=== PATIENT | female | born 1935 | race American Indian/Alaskan Native ===

== ENCOUNTER 2018-12-20 15:37 | Inpatient (IN) | payer MEDICARE ==
--- NOTE | 2018-12-20 16:15 | Emergency Department Report ---
Blank Doc - Documentation Documentation: pt just moved on sunday, cannot take care of herself at home, moved in with jeff krishnamurthy the daughter states that she has 3 bed sores on the buttocks right great toe infection per daughter daughter states she has been more confused PMHx RA, hip fx, shoulder fx, HTN
[2018-12-20 17:01] LABS: Basophils # (Auto) 0.1 K/mm3 (0.0-0.1); Basophils % (Auto) 0.9 % (0.0-1.8); Eosinophils # (Auto) 0.1 K/mm3 (0.0-0.4); Eosinophils % (Auto) 0.9 % (0.0-4.3); Hematocrit 31.8 % (30.3-42.9); Hemoglobin 10.7 gm/dl (10.1-14.3); Lymphocytes # (Auto) 1.9 K/mm3 (1.2-5.4); Lymphocytes % (Auto) 20.8 % (13.4-35.0); Mean Corpuscular HGB Conc 34 % (30-34); Mean Corpuscular Volume 97 fl (79-97); Monocytes # (Auto) 0.9 K/mm3 (0.0-0.8); Monocytes % (Auto) 9.8 % (0.0-7.3); Platelet Count 634 K/mm3 (140-440); Red Blood Count 3.28 M/mm3 (3.65-5.03); Red Cell Distribution Width 14.3 % (13.2-15.2)
[2018-12-20 17:09] LABS: INR 0.87 (0.87-1.13)
[2018-12-20 17:10] LABS: Partial Thromboplastin Time 25.5 Sec. (24.2-36.6)
[2018-12-20 17:21] LABS: Alanine Aminotransferase 9 units/L (7-56); BUN/Creatinine Ratio 25; Blood Urea Nitrogen 15 mg/dL (7-17); Calcium 8.2 mg/dL (8.4-10.2); Hemolysis Index 36
--- NOTE | 2018-12-20 17:35 | XRay Report ---
PROCEDURE: XR FOOT 3+V RT TECHNIQUE: Right foot radiographs, AP, lateral, and oblique views. HISTORY: right great toe infection COMPARISONS: None . FINDINGS: No bony erosion or periosteal reaction. Fracture (s) and/or Dislocation(s): None . Alignment: Normal . Joint space(s): Normal . Soft tissues: Normal . Bone mineralization: Diffuse osteopenia is noted. . Foreign bodies: None . Calcaneal spurring: None . IMPRESSION: No acute osseous abnormality of the right foot. No radiographic evidence of osteomyeliti s. . This document is electronically signed by Rebekah Ricardo., Dec 20 2018 05:33:18 PM ET
--- NOTE | 2018-12-20 17:45 | XRay Report ---
PROCEDURE: XR SHOULDER 2+V RT TECHNIQUE: 3 views of the right shoulder. HISTORY: right shoulder pain, shoulder injury two weeks ago COMPARISONS: None. FINDINGS: No fracture. No dislocation. Normal mineralization. No soft tissue swelling. Calcified apical pleural plaques are seen. Several nodular opacities are seen within the left mid to lower lung. Mild degenerative changes of the right glenohumeral and acromial clavicular joints are seen. IMPRESSION: 1. Mild osteoarthritis of the right shoulder. 2. Calcified bilateral pleural plaques with several nodular opacities projecting in the left lower lo be. Recommend further evaluation with chest x-ray. This document is electronically signed by Rebekah Ricardo., Dec 20 2018 05:43:36 PM ET
[2018-12-20 17:58] LABS: HDL Cholesterol 70 mg/dL (40-59); LDL Cholesterol,Direct 70 mg/dL (50-130)
--- NOTE | 2018-12-20 18:33 | Emergency Department Report ---
ED General Adult HPI - General Chief complaint: Skin/Abscess/Foreign Body Stated complaint: FRACTURED LT SHOULDER/BED SORES Time Seen by Provider: 12/20/18 16:09 Source: patient Mode of arrival: Ambulatory Limitations: Altered Mental Status - History of Present Illness Initial comments: Patient is a 3-year-old female that presents emergency room for violation of left shoulder pain and bedsores. Patient denies chest pain shortness of breath. Patient states her shoulder pain is a 5 out of 10. Patient states it's worse with movement better with rest. Patient states she had an x-ray normal examination with fracture. Patient states she fell on her right shoulder. -: Gradual Location: upper extremity Severity scale (0 -10): 5 Quality: aching Consistency: constant Improves with: rest Worsens with: movement Associated Symptoms: denies: confusion, chest pain, cough, diaphoresis, fever/chills, headaches, loss of appetite, malaise, nausea/vomiting, rash, seizure, shortness of breath, syncope, weakness - Related Data Home Medications Medication Instructions Recorded Confirmed Last Taken Losartan/Hydrochlorothiazide 12/20/18 Unknown Prednisone [predniSONE (Ravinder) ER 5 mg PO QDAY MDD Rheumatoid 12/20/18 12/20/18 12/19/18 21:00 TAB] arthritis Allergies Allergy/AdvReac Type Severity Reaction Status Date / Time No Known Allergies Allergy Verified 12/20/18 15:39 ED Review of Systems ROS: Stated complaint: FRACTURED LT SHOULDER/BED SORES Other details as noted in HPI Constitutional: denies: chills, fever Eyes: denies: eye pain, eye discharge, vision change ENT: denies: ear pain, throat pain Respiratory: denies: cough, shortness of breath, wheezing Cardiovascular: denies: chest pain, palpitations Endocrine: no symptoms reported Gastrointestinal: denies: abdominal pain, nausea, diarrhea Genitourinary: denies: urgency, dysuria, discharge Musculoskeletal: denies: back pain, joint swelling, arthralgia Skin: lesions. denies: rash Neurological: denies: headache, weakness, paresthesias Psychiatric: denies: anxiety, depression Hematological/Lymphatic: denies: easy bleeding, easy bruising ED Past Medical Hx - Past Medical History Previous Medical History?: Yes Hx Hypertension: Yes Hx Arthritis: Yes Additional medical history: Decubitis wounds x 3, ulcers - Surgical History Past Surgical History?: No - Family History Family history: no significant - Social History Smoking Status: Current Every Day Smoker Substance Use Type: Alcohol - Medications Home Medications: Home Medications Medication Instructions Recorded Confirmed Last Taken Type Losartan/Hydrochlorothiazide 12/20/18 Unknown History Prednisone [predniSONE (Ravinder) ER 5 mg PO QDAY MDD Rheumatoid 12/20/18 12/20/18 12/19/18 21:00 History TAB] arthritis ED Physical Exam - General Limitations: No Limitations, Altered Mental Status General appearance: alert, in no apparent distress - Head Head exam: Present: atraumatic, normocephalic - Eye Eye exam: Present: normal appearance, PERRL Pupils: Present: normal accommodation - ENT ENT exam: Present: mucous membranes moist - Neck Neck exam: Present: normal inspection - Respiratory Respiratory exam: Present: normal lung sounds bilaterally. Absent: respiratory distress, wheezes, rales, rhonchi - Cardiovascular Cardiovascular Exam: Present: regular rate, normal rhythm. Absent: systolic murmur, diastolic murmur, rubs, gallop - GI/Abdominal GI/Abdominal exam: Present: soft, normal bowel sounds. Absent: distended, tenderness, guarding - Rectal Rectal exam: Present: deferred - Extremities Exam Extremities exam: Present: normal inspection, tenderness (left shoulder and right great toe.) - Back Exam Back exam: Present: normal inspection - Neurological Exam Neurological exam: Present: alert, altered - Psychiatric Psychiatric exam: Present: normal affect, normal mood - Skin Skin exam: Present: warm, dry, normal color, other (multiple small decubital ulcers noted to her sacral area. Skin breakdown noted to the right great toe and secondary cellulitis.). Absent: rash ED Course Vital Signs 12/20/18 12/20/18 12/20/18 16:10 18:53 20:00 Temperature 98 F Pulse Rate 42 L 74 79 Respiratory 18 18 16 Rate Blood Pressure 98/55 Blood Pressure 134/63 158/67 [Right] O2 Sat by Pulse 100 98 Oximetry 12/20/18 12/20/18 20:11 22:18 Temperature Pulse Rate 77 Respiratory 16 16 Rate Blood Pressure Blood Pressure 141/56 [Right] O2 Sat by Pulse 98 Oximetry - Reevaluation(s) Reevaluation #1: Discussed all results with patient. Patient will be admitted to the hospitalist service. Patient agrees to plan of care. 12/20/18 20:03 - Consultations Consultation #1: Hospitalist consultation for admission. Hospitalist to admit patient. Hospitalist to assume care patient. 12/20/18 20:03 ED Medical Decision Making - Lab Data Result diagrams: 12/20/18 16:22 12/20/18 16:22 - EKG Data -: EKG Interpreted by Me EKG shows normal: sinus rhythm, axis, intervals, QRS complexes, ST-T waves Rate: normal - Radiology Data Radiology results: report reviewed - Medical Decision Making Condition is an 83-year-old female that presents emergency complaints of left shoulder pain, right foot pain, bedsores, altered mental status. Patient found to have elevated troponins and UA findings consistent with UTI, hyponatremia. Patient given antibiotics and fluids. Patient's bedsores are superficial. Pa tient's foot pain secondary to right great toe cellulitis. Patient's shoulder x-ray is negative. Patient's foot x-ray is negative. Patient's chest x-ray is negative. Patient's head CT is no acute findings. Patient admitted to the hospitalist service. - Differential Diagnosis foot pain. Shoulder pain. AMS. Dehydration. UTI. Critical Care Time: Yes Critical care attestation.: If time is entered above; I have spent that time in minutes in the direct care of this critically ill patient, excluding procedure time. Critical Care Time: 45 minutes ED Disposition Clinical Impression: Elevated troponin I level, Hyponatremia, Encephalopathy acute Altered mental state Qualifiers: Altered mental status type: unspecified Qualified Code(s): R41.82 - Altered mental status, unspecified Shoulder pain Qualifiers: Chronicity: acute Laterality: left Qualified Code(s): M25.512 - Pain in left shoulder Foot pain Qualifiers: Laterality: right Qualified Code(s): M79.671 - Pain in right foot COPD (chronic obstructive pulmonary disease) Qualifiers: COPD type: unspecified COPD Qualified Code(s): J44.9 - Chronic obstructive pulmonary disease, unspecified Decubital ulcer Qualifiers: Pressure injury location: sacral region Pressure injury stage: unspecified pressure injury stage Qualified Code(s): L89.159 - Pressure ulcer of sacral region, unspecified stage Cellulitis of great toe Qualifiers: Laterality: right Qualified Code(s): L03.031 - Cellulitis of right toe UTI (urinary tract infection) Qualifiers: Urinary tract infection type: acute cystitis Hematuria presence: with hematuria Qualified Code(s): N30.01 - Acute cystitis with hematuria Disposition: -09 OP ADMIT IP TO THIS HOSP Is pt being admited?: Yes Does the pt Need Aspirin: No Condition: Critical Time of Disposition: 20:03
--- NOTE | 2018-12-20 19:44 | XRay Report ---
PROCEDURE: XR CHEST 1V AP TECHNIQUE: Chest radiograph single view. HISTORY: tammy trop. COMPARISONS: None . FINDINGS: Heart: Normal. Mediastinum/Vessels: Normal. Lungs/Pleural space: Moderate chronic obstructive pulmonary changes. Mild fibrosis. No acute infiltr ate or effusion. No pneumothorax.. 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 Life support devices: None. IMPRESSION: Moderate chronic obstructive pulmonary changes with fibrosis. No acute infiltrate or eff usion.. This document is electronically signed by Cathy Alvarez DO., Dec 20 2018 07:42:44 PM ET
[2018-12-20] MEDS ORDERED: ASPIRIN PO ONE (19:45)
--- NOTE | 2018-12-20 19:46 | Cat Scan Report ---
PROCEDURE: CT HEAD/BRAIN WO CON TECHNIQUE: Computerized tomography of the head was performed without contrast material. CT DOSE LENGTH PRODUCT: 920.5 mGycm HISTORY: AMS COMPARISONS: None . FINDINGS: Brain: There is no evidence of intracranial hemorrhage. No parenchymal hemorrhage is seen. No mass lesions or mass effect is identified. No abnormal extra-axial fluid collections or masses are seen. Small old lacunar infarct seen inferiorly in the lynda to the right of midline. There is some decreased density seen in the periventricular white matter without mass effect. This i s fairly symmetric and does not exhibit any mass effect consistent with gliosis probably on the basis of microvascular disease or white matter changes of aging. Ventricles: The ventricles, sulcal pattern and fissures are prominent consistent with atrophy. Bone Windows: No evidence of fracture. Paranasal sinuses: Visualized portions are clear.. Mastoid air cells: Clear. IMPRESSION: There is evidence of moderate atrophy and gliosis. Small old lacunar infarct visualized in the lynda a s described. No acute intracranial abnormalities are visualized. If clinical symptoms persist or worsen consider follow-up CT scan or MRI for further evaluation. . This document is electronically signed by Randall Massey MD., Dec 20 2018 07:44:16 PM ET
[2018-12-20] MEDS ORDERED: CLEOCIN 300 MG/50 mL 300 MG/50 ML BAG IV ONE (20:25)
[2018-12-20 20:27] LABS: Bacteria,Urine 1+ /HPF (Negative); Bilirubin,Urine NEG (Negative); Blood,Urine SM (Negative); Color,Urine Yellow (Yellow); Mucus,Urine FEW /HPF; Protein,Urine <15 mg/dL mg/dL (Negative); Urobilinogen,Urine < 2.0 mg/dL (<2.0)
[2018-12-20] MEDS ORDERED: ZOFRAN IV PRN (21:00)
[2018-12-20] MEDS ORDERED: TYLENOL PO PRN (21:00)
[2018-12-20] MEDS: SENOKOT PO SCH (23:24)
--- NOTE | 2018-12-20 23:32 | History and Physical Report ---
<CARINE RODRIGUEZ - Last Filed: 12/21/18 00:51> History of Present Illness Date of examination: 12/20/18 Date of admission: 12/20/18 21:00 Chief complaint: Decubitis wounds x3 in buttock area, right toe infection History of present illness: Patient is an 83-year-old female with PMHx of OA, HTN who presents to the ER with c/o right shoulder pain, buttock ulcers and right great toe pain. Patient's daughter at the bedside reports that the patient went to her primary care today who suggest that she comes to the hospital for treatment of her buttocks wounds. Her daughter also reports a history of hip fracture and surgery about a year and half ago after which she becomes wheelchair dependent. Patient also reports right great toe infection, and shoulder pain, she denies any trauma, she states that she is unaware of any injuries to her toes, states that the bed sores are caused by friction from moving into the wheelchair. Patient denies any fever, denies any cough, denies any acute illness, denies any recent injuries or trauma but had reported a recent fall on her right shoulder to the ER. In the ER patient was afebrile, she had had a shoulder x-ray and chest x-ray which showed no shoulder fracture, her UA was positive for UTI, she is admitted for treatment of her buttocks and great toes ulcers. Past History Past Medical History: No medical history, hypertension, other (osteoarthritis) Medications and Allergies Allergies Allergy/AdvReac Type Severity Reaction Status Date / Time No Known Allergies Allergy Verified 12/20/18 15:39 Home Medications Medication Instructions Recorded Confirmed Last Taken Type Losartan/Hydrochlorothiazide 100 mg PO DAILY 12/20/18 12/21/18 Unknown History Prednisone [predniSONE (Ravinder) ER 5 mg PO QDAY MDD Rheumatoid 12/20/18 12/20/18 12/19/18 21:00 History TAB] arthritis Amoxicillin/K Clav Tab [Augmentin 1 each PO Q12HR #4 tablet 12/27/18 Unknown Rx 875MG TAB] HYDROcodone/APAP 5-325 [Henderson 1 each PO Q6H PRN #12 tablet 12/27/18 Unknown Rx 5-325 mg TAB] Active Meds: Active Medications Acetaminophen (Tylenol) 650 mg PO Q4H PRN PRN Reason: Pain MILD(1-3)/Fever >100.5/MUÑIZ Enoxaparin Sodium (Lovenox) 40 mg SUB-Q QDAY [facility] Sodium Chloride (Nacl 0.9% 1000 Ml) 1,000 mls @ 50 mls/hr IV DIRECT MARTIN Ondansetron HCl (Zofran) 4 mg IV Q8H PRN PRN Reason: Nausea And Vomiting Senna (Senokot) 8.6 mg PO Q12HR MARTIN Last Admin: 12/20/18 23:24 Dose: Not Given Documented by: Sodium Chloride (Sodium Chloride Flush Syringe 10 Ml) 10 ml IV BID MARTIN Sodium Chloride (Sodium Chloride Flush Syringe 10 Ml) 10 ml IV PRN PRN PRN Reason: LINE FLUSH Review of Systems Musculoskeletal: gait dysfunction, arthritis Integumentary: sores, wounds Exam - Constitutional Vitals: Temp Pulse Resp BP Pulse Ox 98 F 77 16 141/56 98 12/20/18 16:10 12/20/18 22:18 12/20/18 22:18 12/20/18 22:18 12/20/18 22:18 General appearance: Present: no acute distress - EENT Eyes: Present: EOM intact ENT: hearing intact - Neck Neck: Present: supple - Respiratory Respiratory effort: normal Respiratory: bilateral: CTA - Cardiovascular Rhythm: regular Heart Sounds: Present: S1 & S2 - Extremities Extremity abnormal: ulceration, other (right great toe infection) Peripheral Pulses: within normal limits - Abdominal General gastrointestinal: Present: deferred Female genitourinary: Present: deferred - Integumentary Integumentary: Present: warm, dry - Musculoskeletal Musculoskeletal: strength equal bilaterally - Psychiatric Psychiatric: cooperative, other - Neurologic Neurologic: moves all extremities Results - Labs CBC & Chem 7: 12/20/18 16:22 12/20/18 16:22 Labs: Laboratory Last Values WBC 9.2 K/mm3 (4.5-11.0) 12/20/18 16:22 RBC 3.28 M/mm3 (3.65-5.03) L 12/20/18 16:22 Hgb 10.7 gm/dl (10.1-14.3) 12/20/18 16:22 Hct 31.8 % (30.3-42.9) 12/20/18 16:22 MCV 97 fl (79-97) 12/20/18 16:22 MCH 33 pg (28-32) H 12/20/18 16:22 MCHC 34 % (30-34) 12/20/18 16:22 RDW 14.3 % (13.2-15.2) 12/20/18 16:22 Plt Count 634 K/mm3 (140-440) H 12/20/18 16:22 Lymph % (Auto) 20.8 % (13.4-35.0) 12/20/18 16:22 [place] % (Auto) 9.8 % (0.0-7.3) H 12/20/18 16:22 Eos % (Auto) 0.9 % (0.0-4.3) 12/20/18 16:22 Baso % (Auto) 0.9 % (0.0-1.8) 12/20/18 16:22 Lymph # 1.9 K/mm3 (1.2-5.4) 12/20/18 16:22 [place] # 0.9 K/mm3 (0.0-0.8) H 12/20/18 16:22 Eos # 0.1 K/mm3 (0.0-0.4) 12/20/18 16:22 Baso # 0.1 K/mm3 (0.0-0.1) 12/20/18 16:22 Seg Neutrophils % 67.6 % (40.0-70.0) 12/20/18 16:22 Seg Neutrophils # 6.2 K/mm3 (1.8-7.7) 12/20/18 16:22 PT 12.4 Sec. (12.2-14.9) 12/20/18 16:22 INR 0.87 (0.87-1.13) 12/20/18 16:22 APTT 25.5 Sec. (24.2-36.6) 12/20/18 16:22 Sodium 131 mmol/L (137-145) L 12/20/18 16:22 Potassium 3.5 mmol/L (3.6-5.0) L 12/20/18 16:22 Chloride 94.3 mmol/L (98-107) L 12/20/18 16:22 Carbon Dioxide 23 mmol/L (22-30) 12/20/18 16:22 17 mmol/L 12/20/18 16:22 BUN 15 mg/dL (7-17) 12/20/18 16:22 0.6 mg/dL (0.7-1.2) L 12/20/18 16:22 Estimated GFR > 60 ml/min 12/20/18 16:22 25 % 12/20/18 16:22 Glucose 83 mg/dL (65-100) 12/20/18 16:22 Lactic Acid 1.30 mmol/L (0.7-2.0) 12/20/18 16:22 Calcium 8.2 mg/dL (8.4-10.2) L 12/20/18 16:22 0.20 mg/dL (0.1-1.2) 12/20/18 16:22 AST 16 units/L (5-40) 12/20/18 16:22 ALT 9 units/L (7-56) 12/20/18 16:22 99 units/L (35-129) 12/20/18 16:22 34.0 umol/L (25-60) 12/20/18 16:22 33 units/L (30-135) 12/20/18 16:22 0.090 ng/mL (0.00-0.029) H 12/20/18 19:09 5.8 g/dL (6.3-8.2) L 12/20/18 16:22 3.0 g/dL (3.9-5) L 12/20/18 16:22 1.1 % 12/20/18 16:22 Triglycerides 85 mg/dL (2-149) 12/20/18 16:22 Cholesterol 147 mg/dL (50-199) 12/20/18 16:22 70 mg/dL (50-130) 12/20/18 16:22 70 mg/dL (40-59) H 12/20/18 16:22 2.10 % 12/20/18 16:22 TSH 2.230 mlU/mL (0.270-4.200) 12/20/18 16:22 Yellow (Yellow) 12/20/18 20:04 Slightly-cloudy (Clear) 12/20/18 20:04 5.0 (5.0-7.0) 12/20/18 20:04 Ur Specific [place] 1.014 (1.003-1.030) 12/20/18 20:04 <15 mg/dl mg/dL (Negative) 12/20/18 20:04 Neg mg/dL (Negative) 12/20/18 20:04 Neg mg/dL (Negative) 12/20/18 20:04 Sm (Negative) 12/20/18 20:04 Neg (Negative) 12/20/18 20:04 Neg (Negative) 12/20/18 20:04 < 2.0 mg/dL (<2.0) 12/20/18 20:04 Ur Leukocyte Esterase Lg (Negative) 12/20/18 20:04 29.0 /HPF (0.0-6.0) H 12/20/18 20:04 5.0 /HPF (0.0-6.0) 12/20/18 20:04 U Epithel Cells (Auto) 4.0 /HPF (0-13.0) 12/20/18 20:04 1+ /HPF (Negative) 12/20/18 20:04 Few /HPF 12/20/18 20:04 Salicylates < 0.3 mg/dL (2.8-20.0) L 12/20/18 16:22 Acetaminophen < 5.0 ug/mL (10.0-30.0) L 12/20/18 16:22 Assessment and Plan Assessment and plan: 1. Acute UTI 2. Osteoarthritis 3. Right shoulder pain 4. Hypertension (BP stable 5. Decubitus ulcers (antibiotics) 6. Right great toe infection 7. Debilitating/gait instability Plan: Patient is admitted for bilateral courses and UTI She was started on clindamycin and Rocephin Consults wound care for evaluation PT to evaluate for gait instability IV fluids for hydration Henderson PRN for pain Further plan per hospital course Advance Directives: Yes VTE prophylaxis?: Chemical Plan of care discussed with patient/family: Yes <DAMON SPAIN - Last Filed: 12/27/18 22:19> History of Present Illness Date of admission: 12/20/18 21:00 Medications and Allergies Active Meds: Active Medications Acetaminophen (Tylenol) 650 mg PO Q4H PRN PRN Reason: Pain MILD(1-3)/Fever >100.5/MUÑIZ Last Admin: 12/21/18 00:31 Dose: 650 mg Documented by: Acetaminophen/Hydrocodone Bitart (Henderson 5/325) 1 each PO Q4H PRN PRN Reason: Pain, Moderate (4-6) Enoxaparin Sodium (Lovenox) 40 mg SUB-Q QDAY [facility] Sodium Chloride (Nacl 0.9% 1000 Ml) 1,000 mls @ 50 mls/hr IV DIRECT MARTIN Piperacillin Sod/Tazobactam Sod (Zosyn/Ns 3.375gm/50ml) 3.375 gm in 50 mls @ 100 mls/hr IV Q8HR [facility] Ondansetron HCl (Zofran) 4 mg IV Q8H PRN PRN Reason: Nausea And Vomiting Senna (Senokot) 8.6 mg PO Q12HR [facility] Last Admin: 12/20/18 23:24 Dose: Not Given Documented by: Sodium Chloride (Sodium Chloride Flush Syringe 10 Ml) 10 ml IV BID [facility] Last Admin: 12/20/18 23:33 Dose: 10 ml Documented by: Sodium Chloride (Sodium Chloride Flush Syringe 10 Ml) 10 ml IV PRN PRN PRN Reason: LINE FLUSH Exam - Constitutional Vitals: Temp Pulse Resp BP Pulse Ox 98.1 F 83 21 123/53 100 12/20/18 23:27 12/20/18 23:27 12/20/18 23:27 12/20/18 23:27 12/20/18 23:27 Results - Labs CBC & Chem 7: 12/26/18 07:59 12/26/18 07:59 Labs: Laboratory Last Values WBC 9.2 K/mm3 (4.5-11.0) 12/20/18 16:22 RBC 3.28 M/mm3 (3.65-5.03) L 12/20/18 16:22 Hgb 10.7 gm/dl (10.1-14.3) 12/20/18 16:22 Hct 31.8 % (30.3-42.9) 12/20/18 16:22 MCV 97 fl (79-97) 12/20/18 16:22 MCH 33 pg (28-32) H 12/20/18 16:22 MCHC 34 % (30-34) 12/20/18 16:22 RDW 14.3 % (13.2-15.2) 12/20/18 16:22 Plt Count 634 K/mm3 (140-440) H 12/20/18 16:22 Lymph % (Auto) 20.8 % (13.4-35.0) 12/20/18 16:22 [place] % (Auto) 9.8 % (0.0-7.3) H 12/20/18 16:22 Eos % (Auto) 0.9 % (0.0-4.3) 12/20/18 16:22 Baso % (Auto) 0.9 % (0.0-1.8) 12/20/18 16:22 Lymph # 1.9 K/mm3 (1.2-5.4) 12/20/18 16:22 [place] # 0.9 K/mm3 (0.0-0.8) H 12/20/18 16:22 Eos # 0.1 K/mm3 (0.0-0.4) 12/20/18 16:22 Baso # 0.1 K/mm3 (0.0-0.1) 12/20/18 16:22 Seg Neutrophils % 67.6 % (40.0-70.0) 12/20/18 16:22 Seg Neutrophils # 6.2 K/mm3 (1.8-7.7) 12/20/18 16:22 PT 12.4 Sec. (12.2-14.9) 12/20/18 16:22 INR 0.87 (0.87-1.13) 12/20/18 16:22 APTT 25.5 Sec. (24.2-36.6) 12/20/18 16:22 Sodium 131 mmol/L (137-145) L 12/20/18 16:22 Potassium 3.5 mmol/L (3.6-5.0) L 12/20/18 16:22 Chloride 94.3 mmol/L (98-107) L 12/20/18 16:22 Carbon Dioxide 23 mmol/L (22-30) 12/20/18 16:22 17 mmol/L 12/20/18 16:22 BUN 15 mg/dL (7-17) 12/20/18 16:22 0.6 mg/dL (0.7-1.2) L 12/20/18 16:22 Estimated GFR > 60 ml/min 12/20/18 16:22 25 % 12/20/18 16:22 Glucose 83 mg/dL (65-100) 12/20/18 16:22 Lactic Acid 1.30 mmol/L (0.7-2.0) 12/20/18 16:22 Calcium 8.2 mg/dL (8.4-10.2) L 12/20/18 16:22 0.20 mg/dL (0.1-1.2) 12/20/18 16:22 AST 16 units/L (5-40) 12/20/18 16:22 ALT 9 units/L (7-56) 12/20/18 16:22 99 units/L (35-129) 12/20/18 16:22 34.0 umol/L (25-60) 12/20/18 16:22 33 units/L (30-135) 12/20/18 16:22 0.090 ng/mL (0.00-0.029) H 12/20/18 19:09 5.8 g/dL (6.3-8.2) L 12/20/18 16:22 3.0 g/dL (3.9-5) L 12/20/18 16:22 1.1 % 12/20/18 16:22 Triglycerides 85 mg/dL (2-149) 12/20/18 16:22 Cholesterol 147 mg/dL (50-199) 12/20/18 16:22 70 mg/dL (50-130) 12/20/18 16:22 70 mg/dL (40-59) H 12/20/18 16:22 2.10 % 12/20/18 16:22 TSH 2.230 mlU/mL (0.270-4.200) 12/20/18 16:22 Yellow (Yellow) 12/20/18 20:04 Slightly-cloudy (Clear) 12/20/18 20:04 5.0 (5.0-7.0) 12/20/18 20:04 Ur Specific [place] 1.014 (1.003-1.030) 12/20/18 20:04 <15 mg/dl mg/dL (Negative) 12/20/18 20:04 Neg mg/dL (Negative) 12/20/18 20:04 Neg mg/dL (Negative) 12/20/18 20:04 Sm (Negative) 12/20/18 20:04 Neg (Negative) 12/20/18 20:04 Neg (Negative) 12/20/18 20:04 < 2.0 mg/dL (<2.0) 12/20/18 20:04 Ur Leukocyte Esterase Lg (Negative) 12/20/18 20:04 29.0 /HPF (0.0-6.0) H 12/20/18 20:04 5.0 /HPF (0.0-6.0) 12/20/18 20:04 U Epithel Cells (Auto) 4.0 /HPF (0-13.0) 12/20/18 20:04 1+ /HPF (Negative) 12/20/18 20:04 Few /HPF 12/20/18 20:04 Salicylates < 0.3 mg/dL (2.8-20.0) L 12/20/18 16:22 Acetaminophen < 5.0 ug/mL (10.0-30.0) L 12/20/18 16:22 Assessment and Plan Assessment and plan: 83-year-old woman with a history of hypertension, rheumatoid arthritis with phentermine emergency room by her primary care physician for evaluation of her wounds on the buttock. Status post fall, landed on her right shoulder, stated that she developed the wounds on her buttock after a fall. Also complaining of wound on toe. Patient with toe infection, urinary tract infection, with troponin without cardiac any symptoms, decubitus ulcer. Agree with plan as stated above except change antibiotic to Zosyn, consult surgery, and blood cultures.
[2018-12-20] MEDS: SODIUM CHLORIDE FLUSH SYRINGE 10 ML IV SCH (23:33)
[2018-12-21] MEDS: ZOSYN/NS 3.375GM/50ML 3.375 GM/50 ML BAG IV SCH ×3 (05:24→22:09)
[2018-12-21] MEDS: NORCO 5/325 PO PRN ×3 (06:12→20:13)
[2018-12-21] MEDS: SENOKOT PO SCH ×2 (09:22→22:10)
[2018-12-21] MEDS: LOVENOX SUB-Q SCH (09:22)
[2018-12-21] MEDS: SODIUM CHLORIDE FLUSH SYRINGE 10 ML IV SCH ×2 (09:22→22:10)
[2018-12-21] MEDS ORDERED: ROCEPHIN/NS 2 GM/100 ML 2 GM/100 ML BAG IV SCH (10:00)
--- NOTE | 2018-12-21 12:37 | Progress Note ---
Assessment and Plan Assessment and plan: 83 year old woman who presented to the hospital after she was brought in by her daughter. I don't have stated that she had multiple sores on her buttocks. And her daughter is not able to take care of her. Per patient she slid and fell and scraped her bottom, she also has pain in her left upper extremity which started after a fall Pmh : rheumatoid arthritis , hypertension Diagnosis Multiple wounds and decubitus presents on admission L humerus fx Hypertension right big toe infection Active ongoing tobacco abuse /dependence History of alcohol abuse UTI hypokalemia Multiple pressure wounds all over body, POA FTT, debility Plan Wound care Pt/ot consult Left humerus fx, splinted, ortho consult Antibiotics, surgery consult for wound debridement, ID consult Fup urine cx K replaced -counseled for 11 minutes about tobacco cessation DVT ppx lovenox History Interval history: c/o LUE pain and R big toe pain gen weakness Review of systems Constitutional: No fevers, no malaise, no joint pains CVS: No chest pain, no orthopnea, no pedal edema GI: No abdominal pain, no diarrhea, no vomiting, no constipation Respiratory: No shortness of breath, no wheezing, no coughing Hospitalist Physical - Physical exam Narrative exam: General.: Appears well, no distress, nontoxic HEENT: Moist mucous membranes, extraocular muscles intact, no lymphadenopathy Neck: supple Cardiac: S1-S2 heard Lungs: clear to auscultation bilaterally Abdomen: soft , nontender, nondistended, bowel sounds positive Extremities: tenderness to LUE right big toe is tender and foul smelling with dark crud around toenail Skin: no rash or lesions Neurologic: no gross focal deficits Psych: calm, and cooperative - Constitutional Vitals: Temp Pulse Resp BP Pulse Ox 97.7 F 67 18 150/64 99 12/21/18 08:02 12/21/18 08:02 12/21/18 08:02 12/21/18 08:02 12/21/18 08:02 General appearance: Present: no acute distress Results - Labs CBC & Chem 7: 12/22/18 04:21 12/22/18 04:21 Labs: Laboratory Last Values WBC 9.2 K/mm3 (4.5-11.0) 12/20/18 16:22 RBC 3.28 M/mm3 (3.65-5.03) L 05/17/19 16:22 Hgb 10.7 gm/dl (10.1-14.3) 12/20/18 16:22 Hct 31.8 % (30.3-42.9) 12/20/18 16:22 MCV 97 fl (79-97) 12/20/18 16:22 MCH 33 pg (28-32) H 12/20/18 16:22 MCHC 34 % (30-34) 12/20/18 16:22 RDW 14.3 % (13.2-15.2) 12/20/18 16:22 Plt Count 634 K/mm3 (140-440) H 12/20/18 16:22 Lymph % (Auto) 20.8 % (13.4-35.0) 12/20/18 16:22 [place] % (Auto) 9.8 % (0.0-7.3) H 12/20/18 16:22 Eos % (Auto) 0.9 % (0.0-4.3) 12/20/18 16:22 Baso % (Auto) 0.9 % (0.0-1.8) 12/20/18 16:22 Lymph # 1.9 K/mm3 (1.2-5.4) 12/20/18 16:22 [place] # 0.9 K/mm3 (0.0-0.8) H 12/20/18 16:22 Eos # 0.1 K/mm3 (0.0-0.4) 12/20/18 16:22 Baso # 0.1 K/mm3 (0.0-0.1) 12/20/18 16:22 Seg Neutrophils % 67.6 % (40.0-70.0) 12/20/18 16:22 Seg Neutrophils # 6.2 K/mm3 (1.8-7.7) 12/20/18 16:22 PT 12.4 Sec. (12.2-14.9) 12/20/18 16:22 INR 0.87 (0.87-1.13) 12/20/18 16:22 APTT 25.5 Sec. (24.2-36.6) 12/20/18 16:22 Sodium 131 mmol/L (137-145) L 12/20/18 16:22 Potassium 3.5 mmol/L (3.6-5.0) L 12/20/18 16:22 Chloride 94.3 mmol/L (98-107) L 12/20/18 16:22 Carbon Dioxide 23 mmol/L (22-30) 12/20/18 16:22 17 mmol/L 12/20/18 16:22 BUN 15 mg/dL (7-17) 12/20/18 16:22 0.6 mg/dL (0.7-1.2) L 12/20/18 16:22 Estimated GFR > 60 ml/min 12/20/18 16:22 25 % 12/20/18 16:22 Glucose 83 mg/dL (65-100) 12/20/18 16:22 Lactic Acid 1.30 mmol/L (0.7-2.0) 12/20/18 16:22 Calcium 8.2 mg/dL (8.4-10.2) L 12/20/18 16:22 0.20 mg/dL (0.1-1.2) 12/20/18 16:22 AST 16 units/L (5-40) 12/20/18 16:22 ALT 9 units/L (7-56) 12/20/18 16:22 99 units/L (35-129) 12/20/18 16:22 34.0 umol/L (25-60) 12/20/18 16:22 33 units/L (30-135) 12/20/18 16:22 0.090 ng/mL (0.00-0.029) H 12/20/18 19:09 5.8 g/dL (6.3-8.2) L 12/20/18 16:22 3.0 g/dL (3.9-5) L 12/20/18 16:22 1.1 % 12/20/18 16:22 Triglycerides 85 mg/dL (2-149) 12/20/18 16:22 Cholesterol 147 mg/dL (50-199) 12/20/18 16:22 70 mg/dL (50-130) 12/20/18 16:22 70 mg/dL (40-59) H 12/20/18 16:22 2.10 % 12/20/18 16:22 TSH 2.230 mlU/mL (0.270-4.200) 12/20/18 16:22 Yellow (Yellow) 12/20/18 20:04 Slightly-cloudy (Clear) 12/20/18 20:04 5.0 (5.0-7.0) 12/20/18 20:04 Ur Specific [place] 1.014 (1.003-1.030) 12/20/18 20:04 <15 mg/dl mg/dL (Negative) 12/20/18 20:04 Neg mg/dL (Negative) 12/20/18 20:04 Neg mg/dL (Negative) 12/20/18 20:04 Sm (Negative) 12/20/18 20:04 Neg (Negative) 12/20/18 20:04 Neg (Negative) 12/20/18 20:04 < 2.0 mg/dL (<2.0) 12/20/18 20:04 Ur Leukocyte Esterase Lg (Negative) 12/20/18 20:04 29.0 /HPF (0.0-6.0) H 12/20/18 20:04 5.0 /HPF (0.0-6.0) 12/20/18 20:04 U Epithel Cells (Auto) 4.0 /HPF (0-13.0) 12/20/18 20:04 1+ /HPF (Negative) 12/20/18 20:04 Few /HPF 12/20/18 20:04 Salicylates < 0.3 mg/dL (2.8-20.0) L 12/20/18 16:22 Acetaminophen < 5.0 ug/mL (10.0-30.0) L 12/20/18 16:22 Active Medications - Current Medications Current Medications: Generic Name Dose Route Start Last Admin Trade Name Freq PRN Reason Stop Dose Admin Acetaminophen 650 mg 12/20/18 21:00 12/21/18 00:31 Tylenol PO 650 mg Q4H PRN Administration Pain MILD(1-3)/Fever >100.5/MUÑIZ Acetaminophen/Hydrocodone Bitart 1 each 12/21/18 01:09 12/21/18 06:12 [place] 5/325 PO 1 each Q4H PRN Administration Pain, Moderate (4-6) Enoxaparin Sodium 40 mg 12/21/18 10:00 12/21/18 09:22 Lovenox SUB-Q 40 mg QDAY MARTIN Administration Sodium Chloride 1,000 mls @ 50 mls/hr 12/20/18 21:00 Nacl 0.9% 1000 Ml IV DIRECT MARTIN Piperacillin Sod/Tazobactam Sod 3.375 gm in 50 mls @ 100 mls/hr 12/21/18 06:00 12/21/18 05:24 Zosyn/Ns 3.375gm/50ml IV 100 mls/hr Q8HR MARTIN Administration Ondansetron HCl 4 mg 12/20/18 21:00 Zofran IV Q8H PRN Nausea And Vomiting Senna 8.6 mg 12/20/18 22:00 12/21/18 09:22 Senokot PO 8.6 mg Q12HR MARTIN Administration Sodium Chloride 10 ml 12/20/18 22:00 12/21/18 09:22 Sodium Chloride Flush Syringe 10 Ml IV 10 ml BID MARTIN Administration Sodium Chloride 10 ml 12/20/18 21:00 Sodium Chloride Flush Syringe 10 Ml IV PRN PRN LINE FLUSH
[2018-12-21] MEDS ORDERED: LOSARTAN PO SCH (12:45)
[2018-12-21] MEDS ORDERED: HYDROCHLOROTHIAZIDE PO SCH (12:45)
[2018-12-21] MEDS: SODIUM CHLORIDE FLUSH SYRINGE 10 ML IV PRN (13:59)
[2018-12-21] MEDS: COZAAR PO SCH (14:07)
[2018-12-21] MEDS: HCTZ PO SCH (14:09)
--- NOTE | 2018-12-21 15:19 | Consultation ---
History of Present Illness Consult date: 12/21/18 Chief complaint: left great toe pain, infection - History of present illness History of present illness: 83 yo f with hx of fall last month in which she injured her left shoulder. She has recently relocated from [place]. She has been wheelchair bound per notes and per her daughter at the bedside, has lost 10-15 lbs since the incident due to poor appetite. Patient states that she noticed pain in her left great toe 1 week ago. She states is starting hurting suddenly, is sharp, and is exacerbated when it is pressed. There may have been drainage from the area. She does not recall injuring the toe. She also has wound on her buttocks due to nonambulation/pressure. No f/c, cp, sob, n/v, abd pain. Past History Past Medical History: No medical history, hypertension, other (osteoarthritis) Medications and Allergies Allergies Allergy/AdvReac Type Severity Reaction Status Date / Time No Known Allergies Allergy Verified 12/20/18 15:39 Home Medications Medication Instructions Recorded Confirmed Last Taken Type Losartan/Hydrochlorothiazide 100 mg PO DAILY 12/20/18 12/21/18 Unknown History Prednisone [predniSONE (Ravinder) ER 5 mg PO QDAY MDD Rheumatoid 12/20/18 12/20/18 12/19/18 21:00 History TAB] arthritis Active Meds: Active Medications Acetaminophen (Tylenol) 650 mg PO Q4H PRN PRN Reason: Pain MILD(1-3)/Fever >100.5/MUÑIZ Last Admin: 12/21/18 00:31 Dose: 650 mg Documented by: Acetaminophen/Hydrocodone Bitart ([place] 5/325) 1 each PO Q4H PRN PRN Reason: Pain, Moderate (4-6) Last Admin: 12/21/18 14:16 Dose: 1 each Documented by: Enoxaparin Sodium (Lovenox) 40 mg SUB-Q QDAY MARTIN Last Admin: 12/21/18 09:22 Dose: 40 mg Documented by: Hydrochlorothiazide (Hctz) 12.5 mg PO QDAY MARTIN Last Admin: 12/21/18 14:09 Dose: 12.5 mg Documented by: Sodium Chloride (Nacl 0.9% 1000 Ml) 1,000 mls @ 50 mls/hr IV DIRECT MARTIN Piperacillin Sod/Tazobactam Sod (Zosyn/Ns 3.375gm/50ml) 3.375 gm in 50 mls @ 100 mls/hr IV Q8HR [facility] Last Admin: 12/21/18 13:58 Dose: 100 mls/hr Documented by: Losartan Potassium (Cozaar) 100 mg PO QDAY [facility] Last Admin: 12/21/18 14:07 Dose: 100 mg Documented by: Ondansetron HCl (Zofran) 4 mg IV Q8H PRN PRN Reason: Nausea And Vomiting Prednisone (Deltasone) 5 mg PO QDAY [facility] Senna (Senokot) 8.6 mg PO Q12HR [facility] Last Admin: 12/21/18 09:22 Dose: 8.6 mg Documented by: Sodium Chloride (Sodium Chloride Flush Syringe 10 Ml) 10 ml IV BID [facility] Last Admin: 12/21/18 09:22 Dose: 10 ml Documented by: Sodium Chloride (Sodium Chloride Flush Syringe 10 Ml) 10 ml IV PRN PRN PRN Reason: LINE FLUSH Last Admin: 12/21/18 13:59 Dose: 10 ml Documented by: Review of Systems All systems: negative (10 pt ROS performed and negative except for that listed in HPI) Exam Vital Signs Temp Pulse Resp BP 98 F 42 L 18 98/55 12/20/18 16:10 12/20/18 16:10 12/20/18 16:10 12/20/18 16:10 Narrative exam: gen: AAOx3. NAD. cachectic ENT: no scleral icterus or conjunctival pallor CV: s1, S2+ resp: even and unlabored Ext: Left great toe with eschar vs dry blood on medial aspect. Half of toe has fallen off. Minimal cellulitis of distal tip of toe. No fluctuance. No drainage. + TTP. Palpable distal pulses. Sacrum: Stage 2 ulcer of left ischium approximately 3 cm x 3cm with slough on base. Subcentimeter wound of sacrum. No drainage, erythema, or TTP. Results - Labs 12/20/18 16:22 12/20/18 16:22 Abnormal lab results 12/20/18 12/20/18 12/20/18 Range/Units 16:22 16:22 16:22 RBC 3.28 L (3.65-5.03) M/mm3 MCH 33 H (28-32) pg Plt Count 634 H (140-440) K/mm3 [place] % (Auto) 9.8 H (0.0-7.3) % [place] # 0.9 H (0.0-0.8) K/mm3 Sodium 131 L (137-145) mmol/L Potassium 3.5 L (3.6-5.0) mmol/L Chloride 94.3 L (98-107) mmol/L Creatinine 0.6 L (0.7-1.2) mg/dL Calcium 8.2 L (8.4-10.2) mg/dL Troponin T 0.110 H* (0.00-0.029) ng/mL Total Protein 5.8 L (6.3-8.2) g/dL Albumin 3.0 L (3.9-5) g/dL HDL Cholesterol 70 H (40-59) mg/dL Urine WBC (Auto) (0.0-6.0) /HPF Salicylates < 0.3 L (2.8-20.0) mg/dL Acetaminophen (10.0-30.0) ug/mL 12/20/18 12/20/18 12/20/18 Range/Units 16:22 19:09 20:04 RBC (3.65-5.03) M/mm3 MCH (28-32) pg Plt Count (140-440) K/mm3 [place] % (Auto) (0.0-7.3) % [place] # (0.0-0.8) K/mm3 Sodium (137-145) mmol/L Potassium (3.6-5.0) mmol/L Chloride (98-107) mmol/L Creatinine (0.7-1.2) mg/dL Calcium (8.4-10.2) mg/dL Troponin T 0.090 H (0.00-0.029) ng/mL Total Protein (6.3-8.2) g/dL Albumin (3.9-5) g/dL HDL Cholesterol (40-59) mg/dL Urine WBC (Auto) 29.0 H (0.0-6.0) /HPF Salicylates (2.8-20.0) mg/dL Acetaminophen < 5.0 L (10.0-30.0) ug/mL Diabetes panel 12/20/18 Range/Units 16:22 Sodium 131 L (137-145) mmol/L Potassium 3.5 L (3.6-5.0) mmol/L Chloride 94.3 L (98-107) mmol/L Carbon Dioxide 23 (22-30) mmol/L BUN 15 (7-17) mg/dL Creatinine 0.6 L (0.7-1.2) mg/dL Glucose 83 (65-100) mg/dL Calcium 8.2 L (8.4-10.2) mg/dL AST 16 (5-40) units/L ALT 9 (7-56) units/L Alkaline Phosphatase 99 (35-129) units/L Total Protein 5.8 L (6.3-8.2) g/dL Albumin 3.0 L (3.9-5) g/dL Triglycerides 85 (2-149) mg/dL HDL Cholesterol 70 H (40-59) mg/dL Thyroid panel 12/20/18 Range/Units 16:22 TSH 2.230 (0.270-4.200) mlU/mL Calcium panel 12/20/18 Range/Units 16:22 Calcium 8.2 L (8.4-10.2) mg/dL Albumin 3.0 L (3.9-5) g/dL Pituitary panel 12/20/18 12/20/18 Range/Units 16:22 16:22 Sodium 131 L (137-145) mmol/L Potassium 3.5 L (3.6-5.0) mmol/L Chloride 94.3 L (98-107) mmol/L Carbon Dioxide 23 (22-30) mmol/L BUN 15 (7-17) mg/dL Creatinine 0.6 L (0.7-1.2) mg/dL Glucose 83 (65-100) mg/dL Calcium 8.2 L (8.4-10.2) mg/dL TSH 2.230 (0.270-4.200) mlU/mL Adrenal panel 12/20/18 Range/Units 16:22 Sodium 131 L (137-145) mmol/L Potassium 3.5 L (3.6-5.0) mmol/L Chloride 94.3 L (98-107) mmol/L Carbon Dioxide 23 (22-30) mmol/L BUN 15 (7-17) mg/dL Creatinine 0.6 L (0.7-1.2) mg/dL Glucose 83 (65-100) mg/dL Calcium 8.2 L (8.4-10.2) mg/dL Total Bilirubin 0.20 (0.1-1.2) mg/dL AST 16 (5-40) units/L ALT 9 (7-56) units/L Alkaline Phosphatase 99 (35-129) units/L Total Protein 5.8 L (6.3-8.2) g/dL Albumin 3.0 L (3.9-5) g/dL Assessment and Plan 83 yo F with 1. stage 2 left ischial wound 2. stage 2 sacral wound 3. left great toe infection 4. malnutrition Plan: 1. daily wound care. suspect trauma to the toe vs ingrown toenail. No evidence of abscess 2. abx per 1' 3. offloading of sacrum and ischial areas 4. optimize nutrition, nutrition consult 5. no surgical intervention at this time. Pt may follow up in wound care clinic and with podiatry as outpatient. Discussed plan with patient and her daughter at the bedside. Thank you, please call with questions.
--- NOTE | 2018-12-21 16:19 | Consultation ---
History of Present Illness Consult date: 12/21/18 Consult reason: abnormal cardiac enzymes History of present illness: Patient 2 weeks ago,when getting out of bed fell down and injured left shoul dimitrios.Used to live in [place],moved here to live with family. Denies any previous cardiac hx.Known to have hypertension,no hx. of diabetes or hyperlipidemia. Past History Past Medical History: No medical history, hypertension, other (osteoarthritis) Past Surgical History: cholecystectomy, hysterectomy Medications and Allergies Allergies Allergy/AdvReac Type Severity Reaction Status Date / Time No Known Allergies Allergy Verified 12/20/18 15:39 Home Medications Medication Instructions Recorded Confirmed Last Taken Type Losartan/Hydrochlorothiazide 100 mg PO DAILY 12/20/18 12/21/18 Unknown History Prednisone [predniSONE (Ravinder) ER 5 mg PO QDAY MDD Rheumatoid 12/20/18 12/20/18 12/19/18 21:00 History TAB] arthritis Active Meds: Active Medications Acetaminophen (Tylenol) 650 mg PO Q4H PRN PRN Reason: Pain MILD(1-3)/Fever >100.5/MUÑIZ Last Admin: 12/21/18 00:31 Dose: 650 mg Documented by: Acetaminophen/Hydrocodone Bitart ([place] 5/325) 1 each PO Q4H PRN PRN Reason: Pain, Moderate (4-6) Last Admin: 12/21/18 14:16 Dose: 1 each Documented by: Enoxaparin Sodium (Lovenox) 40 mg SUB-Q QDAY [facility] Last Admin: 12/21/18 09:22 Dose: 40 mg Documented by: Hydrochlorothiazide (Hctz) 12.5 mg PO QDAY [facility] Last Admin: 12/21/18 14:09 Dose: 12.5 mg Documented by: Sodium Chloride (Nacl 0.9% 1000 Ml) 1,000 mls @ 50 mls/hr IV DIRECT [facility] Piperacillin Sod/Tazobactam Sod (Zosyn/Ns 3.375gm/50ml) 3.375 gm in 50 mls @ 100 mls/hr IV Q8HR [facility] Last Admin: 12/21/18 13:58 Dose: 100 mls/hr Documented by: Losartan Potassium (Cozaar) 100 mg PO QDAY [facility] Last Admin: 12/21/18 14:07 Dose: 100 mg Documented by: Ondansetron HCl (Zofran) 4 mg IV Q8H PRN PRN Reason: Nausea And Vomiting Prednisone (Deltasone) 5 mg PO QDAY [facility] Senna (Senokot) 8.6 mg PO Q12HR [facility] Last Admin: 12/21/18 09:22 Dose: 8.6 mg Documented by: Sodium Chloride (Sodium Chloride Flush Syringe 10 Ml) 10 ml IV BID [facility] Last Admin: 12/21/18 09:22 Dose: 10 ml Documented by: Sodium Chloride (Sodium Chloride Flush Syringe 10 Ml) 10 ml IV PRN PRN PRN Reason: LINE FLUSH Last Admin: 12/21/18 13:59 Dose: 10 ml Documented by: Review of Systems Ears, nose, mouth and throat: no ear discharge Breasts: no normal Cardiovascular: no chest pain, no palpitations, no syncope, no dyspnea on exertion Respiratory: no cough Gastrointestinal: no abdominal pain Integumentary: no rash Neurological: no seizures Endocrine: no cold intolerance Hematologic/Lymphatic: no easy bruising Physical Examination Vital Signs Temp Pulse Resp BP 98 F 42 L 18 98/55 12/20/18 16:10 12/20/18 16:10 12/20/18 16:10 12/20/18 16:10 General appearance: no acute distress Neck: Positive: neck supple, trachea midline Cardiac: Positive: Reg Rate and Rhythm, S4. Negative: Audible Murmur Lungs: Positive: Normal Exam Neuro: Positive: Grossly Intact Abdomen: Positive: Soft Skin: Positive: Other (stage 2 left ischial decubitus and stage 2 sacral decubitus .) Results 12/20/18 16:22 12/20/18 16:22 Cardiac Enzymes 12/20/18 Range/Units 16:22 AST 16 (5-40) units/L Coagulation 12/20/18 Range/Units 16:22 PT 12.4 (12.2-14.9) Sec. INR 0.87 (0.87-1.13) APTT 25.5 (24.2-36.6) Sec. Lipids 12/20/18 Range/Units 16:22 Triglycerides 85 (2-149) mg/dL Cholesterol 147 (50-199) mg/dL HDL Cholesterol 70 H (40-59) mg/dL Cholesterol/HDL Ratio 2.10 % CBC 12/20/18 Range/Units 16:22 WBC 9.2 (4.5-11.0) K/mm3 RBC 3.28 L (3.65-5.03) M/mm3 Hgb 10.7 (10.1-14.3) gm/dl Hct 31.8 (30.3-42.9) % Plt Count 634 H (140-440) K/mm3 Lymph # 1.9 (1.2-5.4) K/mm3 [place] # 0.9 H (0.0-0.8) K/mm3 Eos # 0.1 (0.0-0.4) K/mm3 Baso # 0.1 (0.0-0.1) K/mm3 Comprehensive Metabolic Panel 12/20/18 Range/Units 16:22 Sodium 131 L (137-145) mmol/L Potassium 3.5 L (3.6-5.0) mmol/L Chloride 94.3 L (98-107) mmol/L Carbon Dioxide 23 (22-30) mmol/L BUN 15 (7-17) mg/dL Creatinine 0.6 L (0.7-1.2) mg/dL Glucose 83 (65-100) mg/dL Calcium 8.2 L (8.4-10.2) mg/dL AST 16 (5-40) units/L ALT 9 (7-56) units/L Alkaline Phosphatase 99 (35-129) units/L Total Protein 5.8 L (6.3-8.2) g/dL Albumin 3.0 L (3.9-5) g/dL EKG interpretations - Telemetry EKG Rhythm: Sinus Rhythm (EKG >S.R,QS in V1-2,?old ASMI.) Assessment and Plan 83 yo female with hx. of HTN ,?smoking was admitted with shoulder pain,bed sores and hyponatremia,was noted to have abnormal troponins and hence consult.patient denies any chest pain or SOB,no previous cardiac hx. Patient with no cardiac symptoms,abnormal troponin levels and abnormal EKG.Doubt these elevated levels are clinically significant,these may chronic non specific changes. Will get echo for any wall motion abnormalities. Continue risk factor modification.
[2018-12-22] MEDS: NORCO 5/325 PO PRN ×4 (01:10→16:08)
[2018-12-22] MEDS: NACL 0.9% 1000 ML 1,000 ML IV SCH (04:31)
[2018-12-22 05:19] LABS: BUN/Creatinine Ratio 22; Blood Urea Nitrogen 13 mg/dL (7-17); Calcium 7.8 mg/dL (8.4-10.2); Hemolysis Index 36
[2018-12-22 05:28] LABS: Hematocrit 27.2 % (30.3-42.9); Hemoglobin 9.3 gm/dl (10.1-14.3); Mean Corpuscular HGB Conc 34 % (30-34); Mean Corpuscular Volume 97 fl (79-97); Platelet Count 491 K/mm3 (140-440); Red Blood Count 2.79 M/mm3 (3.65-5.03); Red Cell Distribution Width 14.2 % (13.2-15.2)
[2018-12-22] MEDS: ZOSYN/NS 3.375GM/50ML 3.375 GM/50 ML BAG IV SCH (05:35)
[2018-12-22 05:36] LABS: Basophils # (Auto) 0.1 K/mm3 (0.0-0.1); Basophils % (Auto) 1.2 % (0.0-1.8); Eosinophils # (Auto) 0.1 K/mm3 (0.0-0.4); Eosinophils % (Auto) 1.1 % (0.0-4.3); Lymphocytes # (Auto) 1.5 K/mm3 (1.2-5.4); Lymphocytes % (Auto) 15.3 % (13.4-35.0); Monocytes # (Auto) 0.9 K/mm3 (0.0-0.8); Monocytes % (Auto) 8.9 % (0.0-7.3)
--- NOTE | 2018-12-22 09:14 | Consultation ---
History of Present Illness - Reason for Consult Consult date: 12/22/18 Toe infection Requesting physician: GERMAN ULLOA - History of Present Illness HPI: 83-year-old F PMH of OA, HTN, hip fracture s/p surgery a year a half ago since then wheelchair dependent, who presented to the ER on 12/20/18 c/o Left shoulder pain, buttock ulcers and right great toe pain. Pt recently moved from [place]. She fell about 2-3 weeks ago and hit her Left shoulder, which has been painful and has decreased range of motion since then. She has also developed gluteal ulcers and was noted to have R great toe infection. She saw PCP on 12/20/18 who recommended her to come to the ER for further evaluation. She denies F/C, N/V/D, cough, SOB, CP, abdominal pain, dysuria, hematuria, urinary urgency or frequency. In the ER T 98, pulse 42 -> 74, RR 18, SO2 100%, BP 98/55. Labs showed WBC 9.2, H/H 10.7/31.8, PLTs 634, Bun and creatinine 15/0.6. Lactic acid 1.3. Troponin 0.110. UA showed negative nitrite, large LE, RBC 4. WBC 29. Urine cx is in progress, Blood cx are NGTD. She had X rays of R shoulder that were negative for fracture. 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 There were no infiltrates on CXR. CT head showed no acute findings and small old lacunar infarct. She was given Ceftriaxone and clindamycin in the ER for possible UTI and R great toe infection. She is currently on Zosyn. ID is consulted for further antibiotic management. Microbiology: Blood cultures 12/21/18: no growth to date. Wound culture 12/21/18: pending. Urine culture 12/21/18: <10.000 cfu/ml Current Antimicrobials: Zosyn 12/21- Previous Antimicrobials: Ceftriaxone 12/21. Clindamycin 12/20. Review of systems Constitutional: denies chills, fever Eyes: denies: eye pain, eye discharge, vision change ENT: denies: ear pain, throat pain Respiratory: denies cough, shortness of breath, CP Cardiovascular: Denies chest pain, palpitations Endocrine: no symptoms reported Gastrointestinal: denies: abdominal pain, nausea, diarrhea, constipation. Genitourinary: denies: urinary urgency, dysuria Musculoskeletal: denies: back pain. +L shoulder pain and R great toe pain Skin: denies: +gluteal ulcers Neurological: denies: headache, weakness, paresthesias Psychiatric: denies: anxiety, depression Hematological/Lymphatic: denies: easy bleeding, easy bruising Past History Past Medical History: No medical history, arthritis, hypertension, other (osteoarthritis) Past Surgical History: cholecystectomy, hysterectomy (Hip surgery) Medications and Allergies Allergies Allergy/AdvReac Type Severity Reaction Status Date / Time No Known Allergies Allergy Verified 12/20/18 15:39 Home Medications Medication Instructions Recorded Confirmed Last Taken Type Losartan/Hydrochlorothiazide 100 mg PO DAILY 12/20/18 12/21/18 Unknown History Prednisone [predniSONE (Ravinder) ER 5 mg PO QDAY MDD Rheumatoid 12/20/18 12/20/18 12/19/18 21:00 History TAB] arthritis Active Meds: Active Medications Acetaminophen (Tylenol) 650 mg PO Q4H PRN PRN Reason: Pain MILD(1-3)/Fever >100.5/MUÑIZ Last Admin: 12/21/18 00:31 Dose: 650 mg Documented by: Acetaminophen/Hydrocodone Bitart ([place] 5/325) 1 each PO Q4H PRN PRN Reason: Pain, Moderate (4-6) Last Admin: 12/22/18 05:41 Dose: 1 each Documented by: Enoxaparin Sodium (Lovenox) 40 mg SUB-Q QDAY [facility] Last Admin: 12/21/18 09:22 Dose: 40 mg Documented by: Hydrochlorothiazide (Hctz) 12.5 mg PO QDAY [facility] Last Admin: 12/21/18 14:09 Dose: 12.5 mg Documented by: Sodium Chloride (Nacl 0.9% 1000 Ml) 1,000 mls @ 50 mls/hr IV DIRECT [facility] Last Admin: 12/22/18 04:31 Dose: 50 mls/hr Documented by: Piperacillin Sod/Tazobactam Sod (Zosyn/Ns 3.375gm/50ml) 3.375 gm in 50 mls @ 10 0 mls/hr IV Q8HR [facility] Last Admin: 12/22/18 05:35 Dose: 100 mls/hr Documented by: Losartan Potassium (Cozaar) 100 mg PO QDAY [facility] Last Admin: 12/21/18 14:07 Dose: 100 mg Documented by: Ondansetron HCl (Zofran) 4 mg IV Q8H PRN PRN Reason: Nausea And Vomiting Prednisone (Deltasone) 5 mg PO QDAY [facility] Senna (Senokot) 8.6 mg PO Q12HR [facility] Last Admin: 12/21/18 22:10 Dose: Not Given Documented by: Sodium Chloride (Sodium Chloride Flush Syringe 10 Ml) 10 ml IV BID [facility] Last Admin: 12/21/18 22:10 Dose: 10 ml Documented by: Sodium Chloride (Sodium Chloride Flush Syringe 10 Ml) 10 ml IV PRN PRN PRN Reason: LINE FLUSH Last Admin: 12/21/18 13:59 Dose: 10 ml Documented by: Physical Examination - Physical Exam Narrative exam: General appearance: Alert, in NAD, conversant Eyes: anicteric sclerae, moist conjunctivae; no lid-lag; PERRLA HENT: Atraumatic; oropharynx clear with moist mucous membranes and no mucosal ulcerations/no oral thrush; normal hard and soft palate. Normal external ears. Neck: Trachea midline; supple, no thyromegaly or lymphadenopathy Lungs: CTA, with normal respiratory effort and no intercostal retractions CV: RRR, no murmurs Abdomen: Soft, non-tender; no masses or hepatosplenomegaly Extremities: No peripheral edema. Left shoulder no erythema, no open wounds, decreased ROM due to pain. Right great toe with eschar vs. dry blood on medial aspect, no drainage, no fluctuance. Mild TTP. Palpable distal pulses. Skin: Stage 2 ulcer of left ischium approximately 3 cm x 3cm with slough on base. Sub-centimeter wound of sacrum, no drainage, erythema, or TTP. Psych: Appropriate affect, alert and oriented to person, place and time. Neuro: alert and oriented x 3. Non-focal. Lines: No CVL / no PICC - Constitutional Vitals: Vital Signs Temp Pulse Resp BP Pulse Ox 98.2 F 63 18 135/57 98 12/22/18 07:26 12/22/18 08:51 12/22/18 08:51 12/22/18 07:26 12/22/18 08:51 Temperature -Last 24 Hours Temperature 98.2 F Temperature 97.9 F Temperature 98.0 F Temperature 98.2 F Results - Labs CBC & Chem 7: 12/22/18 04:21 12/22/18 04:21 Labs: Abnormal lab results 12/21/18 12/22/18 12/22/18 Range/Units 17:05 04:21 04:21 RBC 2.79 L (3.65-5.03) M/mm3 Hgb 9.3 L (10.1-14.3) gm/dl Hct 27.2 L (30.3-42.9) % MCH 33 H (28-32) pg Plt Count 491 H (140-440) K/mm3 [place] % (Auto) 8.9 H (0.0-7.3) % [place] # 0.9 H (0.0-0.8) K/mm3 Seg Neutrophils % 73.5 H (40.0-70.0) % Sodium 134 L (137-145) mmol/L Potassium 3.2 L (3.6-5.0) mmol/L Creatinine 0.6 L (0.7-1.2) mg/dL Calcium 7.8 L (8.4-10.2) mg/dL Troponin T 0.075 H (0.00-0.029) ng/mL - Imaging and Cardiology Chest x-ray: report reviewed (he is what he was) Assessment and Plan Assessment: 73-year-old F PMH of OA, HTN, hip fracture s/p surgery a year a half ago since then wheelchair dependent, who presented to the ER on 12/20/18 c/o Left shoulder pain, buttock ulcers and right great toe pain. 1) Pyuria on UA, but no UTI symptoms. UCx neg. 2) Right great toe pain with eschar on medial aspect. ? component of ischemia, ?ingrown nail, ?very mild localized infection. X-rays negative for OM. 3) Left shoulder pain. 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 4) Left ischial and sacral decubitus ulcer. Not infected. 5) Elevated troponin. Plan: -Stop zosyn -Start cefazolin pending wound cx -Consider podiatry consult -Left humeral fracture management per primary service Thank you for your consultation, will follow up with you. Ligia Osorio MD Infectious Diseases Specialist [facility] m [phone]
[2018-12-22] MEDS ORDERED: NON-FORMULARY (Prednisone [Prednisone (Rayos) Er Tab] 5 MG) PO SCH (10:00)
[2018-12-22] MEDS: COZAAR PO SCH (10:10)
[2018-12-22] MEDS: HCTZ PO SCH (10:11)
[2018-12-22] MEDS: SENOKOT PO SCH ×2 (10:11→21:51)
[2018-12-22] MEDS: DELTASONE PO SCH (10:11)
[2018-12-22] MEDS: LOVENOX SUB-Q SCH (10:12)
[2018-12-22] MEDS: SODIUM CHLORIDE FLUSH SYRINGE 10 ML IV SCH ×2 (10:12→21:51)
[2018-12-22] MEDS: SODIUM CHLORIDE FLUSH SYRINGE 10 ML IV PRN (14:04)
[2018-12-22] MEDS: ANCEF/NS 1 GM/50 ML 1 GM/50 ML BAG IV SCH ×2 (14:05→21:51)
[2018-12-22] MEDS ORDERED: MAGNESIUM SULFATE 1 GM in WATER FOR INJ (PF) 50 ML IV ONE (14:35)
--- NOTE | 2018-12-22 14:39 | Progress Note ---
Assessment and Plan Assessment and plan: 83 year old woman who presented to the hospital after she was brought in by her daughter. I don't have stated that she had multiple sores on her buttocks. And her daughter is not able to take care of her. Per patient she slid and fell and scraped her bottom, she also has pain in her left upper extremity which started after a fall Pmh : rheumatoid arthritis , hypertension Diagnosis Multiple wounds and decubitus presents on admission L humerus fx Hypertension right big toe infection Active ongoing tobacco abuse /dependence History of alcohol abuse UTI hypokalemia Multiple pressure wounds all over body, POA FTT, debility Plan Wound care Pt/ot consult Left humerus fx, splinted, ortho consult Antibiotics, surgery consult for wound debridement, ID consult Fup urine cx K replaced -counseled for 11 minutes about tobacco cessation DVT ppx lovenox History Interval history: c/o LUE pain and R big toe pain gen weakness Review of systems Constitutional: No fevers, no malaise, no joint pains CVS: No chest pain, no orthopnea, no pedal edema GI: No abdominal pain, no diarrhea, no vomiting, no constipation Respiratory: No shortness of breath, no wheezing, no coughing Hospitalist Physical - Physical exam Narrative exam: General.: Appears well, no distress, nontoxic HEENT: Moist mucous membranes, extraocular muscles intact, no lymphadenopathy Neck: supple Cardiac: S1-S2 heard Lungs: clear to auscultation bilaterally Abdomen: soft , nontender, nondistended, bowel sounds positive Extremities: tenderness to LUE right big toe is tender and foul smelling with dark crud around toenail Skin: no rash or lesions Neurologic: no gross focal deficits Psych: calm, and cooperative - Constitutional Vitals: Temp Pulse Resp BP Pulse Ox 97.8 F 81 18 108/45 100 12/22/18 13:18 12/22/18 13:18 12/22/18 13:18 12/22/18 13:18 12/22/18 13:18 General appearance: Present: no acute distress Results - Labs CBC & Chem 7: 12/22/18 04:21 12/22/18 04:21 Labs: Laboratory Last Values WBC 9.9 K/mm3 (4.5-11.0) 12/22/18 04:21 RBC 2.79 M/mm3 (3.65-5.03) L 05/19/19 04:21 Hgb 9.3 gm/dl (10.1-14.3) L 12/22/18 04:21 Hct 27.2 % (30.3-42.9) L 12/22/18 04:21 MCV 97 fl (79-97) 12/22/18 04:21 MCH 33 pg (28-32) H 12/22/18 04:21 MCHC 34 % (30-34) 12/22/18 04:21 RDW 14.2 % (13.2-15.2) 12/22/18 04:21 Plt Count 491 K/mm3 (140-440) H 12/22/18 04:21 Lymph % (Auto) 15.3 % (13.4-35.0) 12/22/18 04:21 [place] % (Auto) 8.9 % (0.0-7.3) H 12/22/18 04:21 Eos % (Auto) 1.1 % (0.0-4.3) 12/22/18 04:21 Baso % (Auto) 1.2 % (0.0-1.8) 12/22/18 04:21 Lymph # 1.5 K/mm3 (1.2-5.4) 12/22/18 04:21 [place] # 0.9 K/mm3 (0.0-0.8) H 12/22/18 04:21 Eos # 0.1 K/mm3 (0.0-0.4) 12/22/18 04:21 Baso # 0.1 K/mm3 (0.0-0.1) 12/22/18 04:21 Seg Neutrophils % 73.5 % (40.0-70.0) H 12/22/18 04:21 Seg Neutrophils # 7.3 K/mm3 (1.8-7.7) 12/22/18 04:21 PT 12.4 Sec. (12.2-14.9) 12/20/18 16:22 INR 0.87 (0.87-1.13) 12/20/18 16:22 APTT 25.5 Sec. (24.2-36.6) 12/20/18 16:22 Sodium 134 mmol/L (137-145) L 12/22/18 04:21 Potassium 3.2 mmol/L (3.6-5.0) L 12/22/18 04:21 Chloride 99.8 mmol/L (98-107) 12/22/18 04:21 Carbon Dioxide 22 mmol/L (22-30) 12/22/18 04:21 15 mmol/L 12/22/18 04:21 BUN 13 mg/dL (7-17) 12/22/18 04:21 0.6 mg/dL (0.7-1.2) L 12/22/18 04:21 Estimated GFR > 60 ml/min 12/22/18 04:21 22 % 12/22/18 04:21 Glucose 81 mg/dL (65-100) 12/22/18 04:21 Lactic Acid 1.30 mmol/L (0.7-2.0) 12/20/18 16:22 Calcium 7.8 mg/dL (8.4-10.2) L 12/22/18 04:21 0.20 mg/dL (0.1-1.2) 12/20/18 16:22 AST 16 units/L (5-40) 12/20/18 16:22 ALT 9 units/L (7-56) 12/20/18 16:22 99 units/L (35-129) 12/20/18 16:22 34.0 umol/L (25-60) 12/20/18 16:22 33 units/L (30-135) 12/20/18 16:22 0.075 ng/mL (0.00-0.029) H 12/21/18 17:05 5.8 g/dL (6.3-8.2) L 12/20/18 16:22 3.0 g/dL (3.9-5) L 12/20/18 16:22 1.1 % 12/20/18 16:22 Triglycerides 85 mg/dL (2-149) 12/20/18 16:22 Cholesterol 147 mg/dL (50-199) 12/20/18 16:22 70 mg/dL (50-130) 12/20/18 16:22 70 mg/dL (40-59) H 12/20/18 16:22 2.10 % 12/20/18 16:22 TSH 2.230 mlU/mL (0.270-4.200) 12/20/18 16:22 Yellow (Yellow) 12/20/18 20:04 Slightly-cloudy (Clear) 12/20/18 20:04 5.0 (5.0-7.0) 12/20/18 20:04 Ur Specific [place] 1.014 (1.003-1.030) 12/20/18 20:04 <15 mg/dl mg/dL (Negative) 12/20/18 20:04 Neg mg/dL (Negative) 12/20/18 20:04 Neg mg/dL (Negative) 12/20/18 20:04 Sm (Negative) 12/20/18 20:04 Neg (Negative) 12/20/18 20:04 Neg (Negative) 12/20/18 20:04 < 2.0 mg/dL (<2.0) 12/20/18 20:04 Ur Leukocyte Esterase Lg (Negative) 12/20/18 20:04 29.0 /HPF (0.0-6.0) H 12/20/18 20:04 5.0 /HPF (0.0-6.0) 12/20/18 20:04 U Epithel Cells (Auto) 4.0 /HPF (0-13.0) 12/20/18 20:04 1+ /HPF (Negative) 12/20/18 20:04 Few /HPF 12/20/18 20:04 Salicylates < 0.3 mg/dL (2.8-20.0) L 12/20/18 16:22 Acetaminophen < 5.0 ug/mL (10.0-30.0) L 12/20/18 16:22 Active Medications - Current Medications Current Medications: Generic Name Dose Route Start Last Admin Trade Name Freq PRN Reason Stop Dose Admin Acetaminophen 650 mg 12/20/18 21:00 12/21/18 00:31 Tylenol PO 650 mg Q4H PRN Administration Pain MILD(1-3)/Fever >100.5/MUÑIZ Acetaminophen/Hydrocodone Bitart 1 each 12/21/18 01:09 12/22/18 10:11 [place] 5/325 PO 1 each Q4H PRN Administration Pain, Moderate (4-6) Enoxaparin Sodium 40 mg 12/21/18 10:00 12/22/18 10:12 Lovenox SUB-Q 40 mg QDAY MARTIN Administration Hydrochlorothiazide 12.5 mg 12/21/18 14:00 12/22/18 10:11 Hctz PO 12.5 mg QDAY MARTIN Administration Sodium Chloride 1,000 mls @ 50 mls/hr 12/20/18 21:00 12/22/18 04:31 Nacl 0.9% 1000 Ml IV 50 mls/hr DIRECT MARTIN Administration Cefazolin Sodium 1 gm in 50 mls @ 100 mls/hr 12/22/18 14:00 12/22/18 14:05 Ancef/Ns 1 Gm/50 Ml IV 100 mls/hr Q8HR MARTIN Administration Protocol Magnesium Sulfate 1 gm/ 52 mls @ 25 mls/hr 12/22/18 14:35 Sterile Water IV 12/22/18 16:39 ONCE ONE Losartan Potassium 100 mg 12/21/18 14:00 12/22/18 10:10 Cozaar PO 100 mg QDAY MARTIN Administration Ondansetron HCl 4 mg 12/20/18 21:00 Zofran IV Q8H PRN Nausea And Vomiting Potassium Chloride 40 meq 12/22/18 15:00 12/22/18 14:04 K-Dur PO 12/22/18 15:01 40 meq ONCE ONE Administration Potassium Chloride 20 meq 12/23/18 10:00 K-Dur PO QDAY MARTIN Prednisone 5 mg 12/22/18 10:00 12/22/18 10:11 Deltasone PO 5 mg QDAY MARTIN Administration Senna 8.6 mg 12/20/18 22:00 12/22/18 10:11 Senokot PO 8.6 mg Q12HR MARTIN Administration Sodium Chloride 10 ml 12/20/18 22:00 12/22/18 10:12 Sodium Chloride Flush Syringe 10 Ml IV 10 ml BID MARTIN Administration Sodium Chloride 10 ml 12/20/18 21:00 12/22/18 14:04 Sodium Chloride Flush Syringe 10 Ml IV 10 ml PRN PRN Administration LINE FLUSH Nutrition/Malnutrition Assess - Dietary Evaluation Nutrition/Malnutrition Findings: Nutrition Notes Start: 12/21/18 14:16 Freq: Status: Active Protocol: Document 12/21/18 14:16 RM (Rec: 12/21/18 14:29 RM [id number]) Nutrition Notes Need for Assessment generated from: MST Initial or Follow up Assessment Current Diagnosis Hypertension Other Pertinent Diagnosis UTI, R great toe infection, Sacral PU, lower back PUs Current Diet Cardiac Labs/Tests Reviewed Pertinent Medications Reviewed Height 5 ft 1 in Weight 33.3 kg Usual Body Weight 47.73 kg [place] Body Weight (kg) 47.72 BMI 13.8 Weight change and time frame 30% wt loss Subjective/Other Information Screened for malnutrition, skin risk, and difficulty chewing. Panda 13 points. Pt stated that [employer] she ate 1/3 of her meals/food on her plate. Stated that she ate a lot of soup at home. Stated that her appetite is poor d/t mouth soreness and that she has difficulty chewing. Noted lunch at bedside w/bites eaten . Declined regular ONS d/t them causing diarrhea in the past. Stated UBW was 105 lbs months ago. Noted slight temporal wasting. Burn Absent Trauma Absent #1 Nutrition Diagnosis Malnutrition Etiology decreased appetite, mouth soreness As Evidenced by Signs and Symptoms pt statement that [employer] she ate 1/3 of the food on her plate, BMI of 13.9, slight temporal wasting Is patient on ventilator? No Is Patient Ambulatory and/or Out of Bed No REE-([facility]-confined to bed) 883.920 Kcal/Kg value to use for calculation 39 Approximate Energy Requirements Using 1299 kcal/Kg Calculation Used for Recommendations Kcal/kg Additional Notes Protein Needs: 40-50g (1.2-1. 5g/kg) Fluid Needs: 1 ml/kcal Nutrition Intervention Change Diet Order: Full liquid Add Supplement/Snack (indicate name/kcal Ensure Clear 1 daily /protein ) Provides kCal: 220 Provides Protein (gm) 8 Goal #1 PO tolerance Goal #2 Meet at least 75% of calorie and protein needs via PO and ONS intakes Follow-Up By: 12/23/18 Additional Comments Follow for PO and ONS intakes
[2018-12-22] MEDS ORDERED: K-DUR PO ONE (15:00)
[2018-12-22] MEDS ORDERED: MAGNESIUM SULFATE 1 GM in NACL 0.9% 50 ML IV ONE (16:00)
--- NOTE | 2018-12-22 16:25 | XRay Report ---
PROCEDURE: XR HUMERUS 1V LT TECHNIQUE: Left humerus, one view HISTORY: left humerus pain/fall COMPARISONS: None available FINDINGS: There is a displaced fracture of the left proximal humerus. There is periosteal reaction seen. No gle nohumeral joint dislocation. IMPRESSION: Displaced fracture of the proximal left humerus. There appears to be periosteal reaction present. Thi s could be related to early healing if the fracture is subacute, otherwise cannot exclude a pathologi c fracture. This document is electronically signed by Jess Muñoz MD., Dec 22 2018 04:23:50 PM ET
--- NOTE | 2018-12-22 19:46 | Progress Note ---
Assessment and Plan 83 yo female with hx. of HTN ,?smoking was admitted with shoulder pain,bed sores and hyponatremia,was noted to have abnormal troponins and hence consult.patient denies any chest pain or SOB,no previous cardiac hx. Patient with no cardiac symptoms,abnormal troponin levels and abnormal EKG.Doubt these elevated levels are clinically significant,these may chronic non specific changes. Will get echo for any wall motion abnormalities. Continue risk factor modification. 12/22/2018>No cardiac symptoms,patient comfortable.Echo cardiogram is u nremarkable.Continue risk factor modification.No further cardiac w/u indicated at this point. Subjective Date of service: 12/22/18 Interval history: Patient comfortable,no cardiac symptoms. Objective Vital Signs Temp Pulse Pulse Resp Resp BP Pulse Ox 12/22/18 16:08 18 12/22/18 13:18 97.8 F 81 18 108/45 100 12/22/18 10:11 18 12/22/18 10:10 63 135/57 12/22/18 10:00 18 12/22/18 08:51 63 18 98 12/22/18 07:26 98.2 F 63 18 135/57 98 12/22/18 01:42 97.9 F 77 20 127/47 99 12/21/18 22:00 64 17 99 - Physical Examination Neck: Positive: neck supple, trachea midline Cardiac: Positive: Reg Rate and Rhythm Lungs: Positive: clear to auscultation Neuro: Positive: Grossly Intact Abdomen: Positive: Soft Skin: Positive: Other (stage 2 left ischial decubitus and stage 2 sacral decubitus .) - Labs and Meds CBC 12/22/18 Range/Units 04:21 WBC 9.9 (4.5-11.0) K/mm3 RBC 2.79 L (3.65-5.03) M/mm3 Hgb 9.3 L (10.1-14.3) gm/dl Hct 27.2 L (30.3-42.9) % Plt Count 491 H (140-440) K/mm3 Lymph # 1.5 (1.2-5.4) K/mm3 [place] # 0.9 H (0.0-0.8) K/mm3 Eos # 0.1 (0.0-0.4) K/mm3 Baso # 0.1 (0.0-0.1) K/mm3 Comprehensive Metabolic Panel 12/22/18 Range/Units 04:21 Sodium 134 L (137-145) mmol/L Potassium 3.2 L (3.6-5.0) mmol/L Chloride 99.8 (98-107) mmol/L Carbon Dioxide 22 (22-30) mmol/L BUN 13 (7-17) mg/dL Creatinine 0.6 L (0.7-1.2) mg/dL Glucose 81 (65-100) mg/dL Calcium 7.8 L (8.4-10.2) mg/dL
[2018-12-22] MEDS: MORPHINE IV PRN (23:21)
[2018-12-23] MEDS: NORCO 5/325 PO PRN ×2 (05:29→10:25)
[2018-12-23] MEDS: ANCEF/NS 1 GM/50 ML 1 GM/50 ML BAG IV SCH (05:31)
[2018-12-23] MEDS: NACL 0.9% 1000 ML 1,000 ML IV SCH (05:31)
[2018-12-23] MEDS: MORPHINE IV PRN ×2 (05:43→21:11)
--- NOTE | 2018-12-23 07:40 | Progress Note ---
Assessment and Plan Assessment and plan: 83 year old woman who presented to the hospital after she was brought in by her daughter. I don't have stated that she had multiple sores on her buttocks. And her daughter is not able to take care of her. Per patient she slid and fell and scraped her bottom, she also has pain in her left upper extremity which started after a fall Pmh : rheumatoid arthritis , hypertension Diagnosis Multiple wounds and decubitus presents on admission L humerus fx Hypertension right big toe infection Active ongoing tobacco abuse /dependence History of alcohol abuse UTI hypokalemia Multiple pressure wounds all over body, POA FTT, debility elevated troponin Plan Wound care Pt/ot consult Left humerus fx, splinted, ortho consulted, planned for surgical open reduction Antibiotics, surgery consult for wound debridement, ID consult Fup urine cx K replaced -counseled for 11 minutes about tobacco cessation cardiology input appreciated, echo wnl, no further cardiac workup recommended, EKG was wnl and she did not have cp DVT ppx lovenox dispo; she is adamantly refusing rehab placement, she agrees to home health and home PT History Interval history: c/o LUE pain and R big toe pain gen weakness Review of systems Constitutional: No fevers, no malaise, no joint pains CVS: No chest pain, no orthopnea, no pedal edema GI: No abdominal pain, no diarrhea, no vomiting, no constipation Respiratory: No shortness of breath, no wheezing, no coughing Hospitalist Physical - Physical exam Narrative exam: General.: Appears well, no distress, nontoxic HEENT: Moist mucous membranes, extraocular muscles intact, no lymphadenopathy Neck: supple Cardiac: S1-S2 heard Lungs: clear to auscultation bilaterally Abdomen: soft , nontender, nondistended, bowel sounds positive Extremities: tenderness to LUE right big toe is tender and foul smelling with dark crud around toenail Skin: no rash or lesions Neurologic: no gross focal deficits Psych: calm, and cooperative - Constitutional Vitals: Temp Pulse Resp BP Pulse Ox 98.1 F 64 16 130/58 100 12/23/18 03:09 12/23/18 03:09 12/23/18 03:09 12/23/18 03:09 12/23/18 03:09 General appearance: Present: no acute distress Results - Labs CBC & Chem 7: 12/22/18 04:21 12/23/18 06:36 Labs: Laboratory Last Values WBC 9.9 K/mm3 (4.5-11.0) 12/22/18 04:21 RBC 2.79 M/mm3 (3.65-5.03) L 12/22/18 04:21 Hgb 9.3 gm/dl (10.1-14.3) L 12/22/18 04:21 Hct 27.2 % (30.3-42.9) L 12/22/18 04:21 MCV 97 fl (79-97) 12/22/18 04:21 MCH 33 pg (28-32) H 12/22/18 04:21 MCHC 34 % (30-34) 12/22/18 04:21 RDW 14.2 % (13.2-15.2) 12/22/18 04:21 Plt Count 491 K/mm3 (140-440) H 12/22/18 04:21 Lymph % (Auto) 15.3 % (13.4-35.0) 12/22/18 04:21 [place] % (Auto) 8.9 % (0.0-7.3) H 12/22/18 04:21 Eos % (Auto) 1.1 % (0.0-4.3) 12/22/18 04:21 Baso % (Auto) 1.2 % (0.0-1.8) 12/22/18 04:21 Lymph # 1.5 K/mm3 (1.2-5.4) 12/22/18 04:21 [place] # 0.9 K/mm3 (0.0-0.8) H 12/22/18 04:21 Eos # 0.1 K/mm3 (0.0-0.4) 12/22/18 04:21 Baso # 0.1 K/mm3 (0.0-0.1) 12/22/18 04:21 Seg Neutrophils % 73.5 % (40.0-70.0) H 12/22/18 04:21 Seg Neutrophils # 7.3 K/mm3 (1.8-7.7) 12/22/18 04:21 PT 12.4 Sec. (12.2-14.9) 12/20/18 16:22 INR 0.87 (0.87-1.13) 12/20/18 16:22 APTT 25.5 Sec. (24.2-36.6) 12/20/18 16:22 Sodium 134 mmol/L (137-145) L 12/22/18 04:21 Potassium 3.2 mmol/L (3.6-5.0) L 12/22/18 04:21 Chloride 99.8 mmol/L (98-107) 12/22/18 04:21 Carbon Dioxide 22 mmol/L (22-30) 12/22/18 04:21 15 mmol/L 12/22/18 04:21 BUN 13 mg/dL (7-17) 12/22/18 04:21 0.6 mg/dL (0.7-1.2) L 12/22/18 04:21 Estimated GFR > 60 ml/min 12/22/18 04:21 22 % 12/22/18 04:21 Glucose 81 mg/dL (65-100) 12/22/18 04:21 Lactic Acid 1.30 mmol/L (0.7-2.0) 12/20/18 16:22 Calcium 7.8 mg/dL (8.4-10.2) L 12/22/18 04:21 0.20 mg/dL (0.1-1.2) 12/20/18 16:22 AST 16 units/L (5-40) 12/20/18 16:22 ALT 9 units/L (7-56) 12/20/18 16:22 99 units/L (35-129) 12/20/18 16:22 34.0 umol/L (25-60) 12/20/18 16:22 33 units/L (30-135) 12/20/18 16:22 0.075 ng/mL (0.00-0.029) H 12/21/18 17:05 5.8 g/dL (6.3-8.2) L 12/20/18 16:22 3.0 g/dL (3.9-5) L 12/20/18 16:22 1.1 % 12/20/18 16:22 Triglycerides 85 mg/dL (2-149) 12/20/18 16:22 Cholesterol 147 mg/dL (50-199) 12/20/18 16:22 70 mg/dL (50-130) 12/20/18 16:22 70 mg/dL (40-59) H 12/20/18 16:22 2.10 % 12/20/18 16:22 TSH 2.230 mlU/mL (0.270-4.200) 12/20/18 16:22 Yellow (Yellow) 12/20/18 20:04 Slightly-cloudy (Clear) 12/20/18 20:04 5.0 (5.0-7.0) 12/20/18 20:04 Ur Specific [place] 1.014 (1.003-1.030) 12/20/18 20:04 <15 mg/dl mg/dL (Negative) 12/20/18 20:04 Neg mg/dL (Negative) 12/20/18 20:04 Neg mg/dL (Negative) 12/20/18 20:04 Sm (Negative) 12/20/18 20:04 Neg (Negative) 12/20/18 20:04 Neg (Negative) 12/20/18 20:04 < 2.0 mg/dL (<2.0) 12/20/18 20:04 Ur Leukocyte Esterase Lg (Negative) 12/20/18 20:04 29.0 /HPF (0.0-6.0) H 12/20/18 20:04 5.0 /HPF (0.0-6.0) 12/20/18 20:04 U Epithel Cells (Auto) 4.0 /HPF (0-13.0) 12/20/18 20:04 1+ /HPF (Negative) 12/20/18 20:04 Few /HPF 12/20/18 20:04 Salicylates < 0.3 mg/dL (2.8-20.0) L 12/20/18 16:22 Acetaminophen < 5.0 ug/mL (10.0-30.0) L 12/20/18 16:22 Active Medications - Current Medications Current Medications: Generic Name Dose Route Start Last Admin Trade Name Freq PRN Reason Stop Dose Admin Acetaminophen 650 mg 12/20/18 21:00 12/21/18 00:31 Tylenol PO 650 mg Q4H PRN Administration Pain MILD(1-3)/Fever >100.5/MUÑIZ Acetaminophen/Hydrocodone Bitart 1 each 12/21/18 01:09 12/23/18 05:29 [place] 5/325 PO 1 each Q4H PRN Administration Pain, Moderate (4-6) Enoxaparin Sodium 40 mg 12/21/18 10:00 12/22/18 10:12 Lovenox SUB-Q 40 mg QDAY MARTIN Administration Hydrochlorothiazide 12.5 mg 12/21/18 14:00 12/22/18 10:11 Hctz PO 12.5 mg QDAY MARTIN Administration Sodium Chloride 1,000 mls @ 50 mls/hr 12/20/18 21:00 12/23/18 05:31 Nacl 0.9% 1000 Ml IV 50 mls/hr DIRECT MARTIN Administration Cefazolin Sodium 1 gm in 50 mls @ 100 mls/hr 12/22/18 14:00 12/23/18 05:31 Ancef/Ns 1 Gm/50 Ml IV 100 mls/hr Q8HR MARTIN Administration Protocol Losartan Potassium 100 mg 12/21/18 14:00 12/22/18 10:10 Cozaar PO 100 mg QDAY MARTIN Administration Morphine Sulfate 4 mg 12/22/18 22:38 12/23/18 05:43 Morphine IV 4 mg Q4H PRN Administration Pain , Severe (7-10) Ondansetron HCl 4 mg 12/20/18 21:00 Zofran IV Q8H PRN Nausea And Vomiting Potassium Chloride 20 meq 12/23/18 10:00 K-Dur PO QDAY MARTIN Prednisone 5 mg 12/22/18 10:00 12/22/18 10:11 Deltasone PO 5 mg QDAY MARTIN Administration Senna 8.6 mg 12/20/18 22:00 12/22/18 21:51 Senokot PO 8.6 mg Q12HR MARTIN Administration Sodium Chloride 10 ml 12/20/18 22:00 12/22/18 21:51 Sodium Chloride Flush Syringe 10 Ml IV 10 ml BID MARTIN Administration Sodium Chloride 10 ml 12/20/18 21:00 12/22/18 14:04 Sodium Chloride Flush Syringe 10 Ml IV 10 ml PRN PRN Administration LINE FLUSH Nutrition/Malnutrition Assess - Dietary Evaluation Nutrition/Malnutrition Findings: Nutrition Notes Start: 12/21/18 14:16 Freq: Status: Active Protocol: Document 12/21/18 14:16 RM (Rec: 05/18/19 14:29 RM [id number]) Nutrition Notes Need for Assessment generated from: MST Initial or Follow up Assessment Current Diagnosis Hypertension Other Pertinent Diagnosis UTI, R great toe infection, Sacral PU, lower back PUs Current Diet Cardiac Labs/Tests Reviewed Pertinent Medications Reviewed Height 5 ft 1 in Weight 33.3 kg Usual Body Weight 47.73 kg Jet Body Weight (kg) 47.72 BMI 13.8 Weight change and time frame 30% wt loss Subjective/Other Information Screened for malnutrition, skin risk, and difficulty chewing. Panda 13 points. Pt stated that [employer] she ate 1/3 of her meals/food on her plate. Stated that she ate a lot of soup at home. Stated that her appetite is poor d/t mouth soreness and that she has difficulty chewing. Noted lunch at bedside w/bites eaten . Declined regular ONS d/t them causing diarrhea in the past. Stated UBW was 105 lbs months ago. Noted slight temporal wasting. Burn Absent Trauma Absent #1 Nutrition Diagnosis Malnutrition Etiology decreased appetite, mouth soreness As Evidenced by Signs and Symptoms pt statement that [employer] she ate 1/3 of the food on her plate, BMI of 13.9, slight temporal wasting Is patient on ventilator? No Is Patient Ambulatory and/or Out of Bed No REE-([facility]-confined to bed) 883.920 Kcal/Kg value to use for calculation 39 Approximate Energy Requirements Using 1299 kcal/Kg Calculation Used for Recommendations Kcal/kg Additional Notes Protein Needs: 40-50g (1.2-1. 5g/kg) Fluid Needs: 1 ml/kcal Nutrition Intervention Change Diet Order: Full liquid Add Supplement/Snack (indicate name/kcal Ensure Clear 1 daily /protein ) Provides kCal: 220 Provides Protein (gm) 8 Goal #1 PO tolerance Goal #2 Meet at least 75% of calorie and protein needs via PO and ONS intakes Follow-Up By: 12/23/18 Additional Comments Follow for PO and ONS intakes
[2018-12-23 07:54] LABS: BUN/Creatinine Ratio 16; Blood Urea Nitrogen 8 mg/dL (7-17); Calcium 7.8 mg/dL (8.4-10.2); Hemolysis Index 12
--- NOTE | 2018-12-23 09:59 | Progress Note ---
Assessment and Plan Assessment: 73-year-old F PMH of OA, HTN, hip fracture s/p surgery a year a half ago since then wheelchair dependent, who presented to the ER on 12/20/18 c/o Left shoulder pain, buttock ulcers and right great toe pain. 1) Pyuria on UA, but no UTI symptoms. UCx neg. 2) Right Toe paronichia: Right great toe pain with eschar on medial aspect. ? component of ischemia, ?ingrown nail, ?very mild localized infection. X-rays negative for OM. 3) Left shoulder pain. 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 4) Left ischial and sacral decubitus ulcer. Not infected. 5) Elevated troponin. Plan: -Discontinue cefazolin -Start Augmentin 875 mg PO total 7 days ending 12-28-18 -Recommend Podiatry evaluation outpatient -Left humeral fracture management per primary service [facility] M: [phone] O:[phone] Subjective Date of service: 12/23/18 Interval history: Patient seen and examined. Right great toe pain improved. No fevers. Objective - Exam Narrative Exam: General appearance: Alert, in NAD, conversant Eyes: anicteric sclerae, moist conjunctivae; no lid-lag; PERRLA HENT: Atraumatic; oropharynx clear with moist mucous membranes and no mucosal ulcerations/no oral thrush; normal hard and soft palate. Normal external ears. Neck: Trachea midline; supple, no thyromegaly or lymphadenopathy Lungs: CTA, with normal respiratory effort and no intercostal retractions CV: RRR, no murmurs Abdomen: Soft, non-tender; no masses or hepatosplenomegaly Extremities: No peripheral edema. Left shoulder no erythema, no open wounds, decreased ROM due to pain. Right great toe with eschar vs. dry blood on medial aspect, no drainage, no fluctuance. Palpable distal pulses. Skin: Stage 2 ulcer of left ischium approximately 3 cm x 3cm with slough on base. Sub-centimeter wound of sacrum, no drainage or erythema Psych: Appropriate affect, alert and oriented to person, place and time. Neuro: alert and oriented x 3 Lines: No CVL / no PICC - Constitutional Vitals: Vital Signs Temp Pulse Resp BP Pulse Ox 97.8 F 70 18 132/53 95 12/23/18 07:45 12/23/18 07:45 12/23/18 07:45 12/23/18 07:45 12/23/18 07:45 Temperature -Last 24 Hours Temperature 97.8 F Temperature 97.8 F Temperature 98.1 F Temperature 97.8 F Temperature 97.8 F - Labs CBC & Chem 7: 12/22/18 04:21 12/23/18 06:36 Labs: Abnormal lab results 12/23/18 Range/Units 06:36 Sodium 133 L (137-145) mmol/L Carbon Dioxide 20 L (22-30) mmol/L Creatinine 0.5 L (0.7-1.2) mg/dL Calcium 7.8 L (8.4-10.2) mg/dL Magnesium 1.50 L (1.7-2.3) mg/dL
[2018-12-23] MEDS: DELTASONE PO SCH (10:25)
[2018-12-23] MEDS: K-DUR PO SCH (10:26)
[2018-12-23] MEDS: SENOKOT PO SCH ×2 (10:26→21:39)
[2018-12-23] MEDS: COZAAR PO SCH (10:27)
[2018-12-23] MEDS: HCTZ PO SCH (10:27)
[2018-12-23] MEDS: LOVENOX SUB-Q SCH (10:28)
[2018-12-23] MEDS: SODIUM CHLORIDE FLUSH SYRINGE 10 ML IV SCH ×2 (10:28→21:40)
[2018-12-23] MEDS ORDERED: MAGNESIUM SULFATE 4GM/100ML 4 GM/100 ML BAG IV ONE (11:00)
[2018-12-23] MEDS: AUGMENTIN 875 MG PO SCH ×2 (14:21→21:39)
--- NOTE | 2018-12-23 15:11 | Cat Scan Report ---
PROCEDURE: CT UPPER EXTREM LT WO CON TECHNIQUE: Computerized tomography of the left humerus performed without contrast material. Coronal a nd sagittal reformatted images were provided. CT DOSE LENGTH PRODUCT: 667.9 mGy-cm. HISTORY: displaced left prox humerus fracture COMPARISONS: None currently available. FINDINGS: Osteolysis of the left femoral neck and adjacent head identified. The distal humerus fragment is supe riorly displaced and overlaps the remaining femoral head approximately 2 cm. There is slight lateral displacement measuring 1 cm. Minimal anterior displacement identified. Irregular sclerotic margins at the remaining humeral head and metaphysis identified. Surrounding bone fragments and/or calcificatio ns may represent hypertrophic osseous changes, dystrophic calcifications, or osteogenic seeding. Mixe d density soft tissue lesion noted at the femoral neck may represent hematoma, postsurgical changes, or a lesion. Moderate surrounding joint effusion identified. Effusions extends into the subacromial a nd subscapular space with areas of punctate densities which could represent loose bodies. Notable col lection of bone fragments or calcifications in the subacromial space. Moderate arthrosis at the glenohumeral joint. Mild arthrosis at the acromioclavicular joint. No dislo cation. There are no radiopaque foreign objects. Partially imaged left pleural effusion with adjacent subsegmental atelectasis or infiltrate noted. Anasarca. Left arm soft tissue swelling. IMPRESSION: * Osteolysis at the left femoral neck and adjacent head may be related to fracture which could be vo bacute to chronic. Differential diagnosis includes pathological fracture, infection, and inflammation . Please correlate for possible osteomyelitis. * Mixed density lesion at the fracture may represent mass, hematoma, post surgical changes, or devel oping callus formation. * Moderate joint effusion. * Scattered areas of bone fragments around the fracture may represent loose bodies, dystrophic calci fications, hypertrophic osseous changes, or osteogenic seeding. This document is electronically signed by Jose Francisco Phillips MD., Dec 23 2018 03:09:19 PM ET
--- NOTE | 2018-12-23 16:27 | Consultation ---
History of Present Illness - HPI Consult date: 12/23/18 Consult reason: fracture History of present illness: 83-year-old female who complained of left shoulder pain after a fall at home Past History Past Medical History: No medical history, arthritis, hypertension, other (osteoarthritis) Past Surgical History: cholecystectomy, hysterectomy (Hip surgery) Medications and Allergies Allergies Allergy/AdvReac Type Severity Reaction Status Date / Time No Known Allergies Allergy Verified 12/20/18 15:39 Home Medications Medication Instructions Recorded Confirmed Last Taken Type Losartan/Hydrochlorothiazide 100 mg PO DAILY 12/20/18 12/21/18 Unknown History Prednisone [predniSONE (Ravinder) ER 5 mg PO QDAY MDD Rheumatoid 12/20/18 12/20/18 12/19/18 21:00 History TAB] arthritis Amoxicillin/K Clav Tab [Augmentin 1 each PO Q12HR #4 tablet 12/27/18 Unknown Rx 875MG TAB] HYDROcodone/APAP 5-325 [[place] 1 each PO Q6H PRN #12 tablet 12/27/18 Unknown Rx 5-325 mg TAB] Active Meds: Active Medications Acetaminophen (Tylenol) 650 mg PO Q4H PRN PRN Reason: Pain MILD(1-3)/Fever >100.5/MUÑIZ Last Admin: 12/21/18 00:31 Dose: 650 mg Documented by: Acetaminophen/Hydrocodone Bitart ([place] 5/325) 1 each PO Q4H PRN PRN Reason: Pain, Moderate (4-6) Last Admin: 12/23/18 10:25 Dose: 1 each Documented by: Amoxicillin/Clavulanate Potassium (Augmentin 875 Mg) 1 each PO Q12HR [facility] Last Admin: 12/23/18 14:21 Dose: 1 each Documented by: Enoxaparin Sodium (Lovenox) 40 mg SUB-Q QDAY [facility] Last Admin: 12/23/18 10:28 Dose: 40 mg Documented by: Hydrochlorothiazide (Hctz) 12.5 mg PO QDAY [facility] Last Admin: 12/23/18 10:27 Dose: Not Given Documented by: Sodium Chloride (Nacl 0.9% 1000 Ml) 1,000 mls @ 50 mls/hr IV DIRECT MARTIN Last Admin: 12/23/18 05:31 Dose: 50 mls/hr Documented by: Losartan Potassium (Cozaar) 100 mg PO QDAY [facility] Last Admin: 12/23/18 10:27 Dose: Not Given Documented by: Morphine Sulfate (Morphine) 4 mg IV Q4H PRN PRN Reason: Pain , Severe (7-10) Last Admin: 12/23/18 05:43 Dose: 4 mg Documented by: Ondansetron HCl (Zofran) 4 mg IV Q8H PRN PRN Reason: Nausea And Vomiting Potassium Chloride (K-Dur) 20 meq PO QDAY [facility] Last Admin: 12/23/18 10:26 Dose: 20 meq Documented by: Prednisone (Deltasone) 5 mg PO QDAY [facility] Last Admin: 12/23/18 10:25 Dose: 5 mg Documented by: Senna (Senokot) 8.6 mg PO Q12HR [facility] Last Admin: 12/23/18 10:26 Dose: 8.6 mg Documented by: Sodium Chloride (Sodium Chloride Flush Syringe 10 Ml) 10 ml IV BID [facility] Last Admin: 12/23/18 10:28 Dose: 10 ml Documented by: Sodium Chloride (Sodium Chloride Flush Syringe 10 Ml) 10 ml IV PRN PRN PRN Reason: LINE FLUSH Last Admin: 12/22/18 14:04 Dose: 10 ml Documented by: Physical Examination - Physical exam Narrative exam: On physical examination well-nourished well-developed elderly female who is alert and oriented 3 significant musculoskeletal findings related to the left upper extremity here she is noted to have moderate swelling with tenderness about the proximal humerus active range of motion is decreased secondary to pain skin is intact distal neurovascular status she is able to extend wrist and fingers as well as grasp objects in her hand with no difficulties Assessment and Plan Displaced left proximal humerus fracture Recommendation - discussed treatment options with the patient based on the history, physical examination and review of the x-rays and CT scans I have recommended closed reduction possible open reduction internal fixation left proximal humerus
[2018-12-24] MEDS ORDERED: APRESOLINE IV PRN (04:19)
[2018-12-24] MEDS: MORPHINE IV PRN (06:58)
--- NOTE | 2018-12-24 08:43 | Progress Note ---
Assessment and Plan Assessment: 73-year-old F PMH of OA, HTN, hip fracture s/p surgery a year a half ago since then wheelchair dependent, who presented to the ER on 12/20/18 c/o Left shoulder pain, buttock ulcers and right great toe pain. 1) Pyuria on UA, but no UTI symptoms. UCx neg. 2) Right Toe paronichia: Right great toe pain with eschar on medial aspect. ? component of ischemia, ?ingrown nail, ?very mild localized infection. X-rays negative for OM. 3) Left shoulder pain. 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 Collier recommend closed reduction possible open reduction internal fixation left proximal humerus. Possible surgery this week. 4) Left ischial and sacral decubitus ulcer. Not infected. 5) Elevated troponin. Plan: -Continue Augmentin 875 mg PO total 7 days ending 12-28-18 -Recommend Podiatry evaluation outpatient -Clinically stable ID is signing off [facility] M: [id number] O:[phone] Subjective Date of service: 12/24/18 Interval history: Patient seen and examined. Reports continued left shoulder discomfort. Right toe pain improved. No fevers. Objective - Exam Narrative Exam: General appearance: Alert, in NAD, conversant Eyes: anicteric sclerae, moist conjunctivae; no lid-lag; PERRLA HENT: Atraumatic; oropharynx clear with moist mucous membranes and no mucosal ulcerations/no oral thrush; normal hard and soft palate. Normal external ears. Neck: Trachea midline; supple, no thyromegaly or lymphadenopathy Lungs: CTA, with normal respiratory effort and no intercostal retractions CV: RRR, no murmurs Abdomen: Soft, non-tender; no masses or hepatosplenomegaly Extremities: No peripheral edema. Continued left shoulder pain. Right great toe with eschar vs. dry blood on medial aspect, no drainage, no fluctuance. Palpable distal pulses. Skin: Stage 2 ulcer of left ischium approximately 3 cm x 3cm with slough on base. Sub-centimeter wound of sacrum, no drainage or erythema Psych: Appropriate affect, alert and oriented to person, place and time. Neuro: alert and oriented x 3 Lines: No CVL / no PICC - Constitutional Vitals: Vital Signs Temp Pulse Resp BP Pulse Ox 98.5 F 79 18 133/52 98 12/24/18 08:16 12/24/18 08:16 12/24/18 08:16 12/24/18 08:16 12/24/18 08:16 Temperature -Last 24 Hours Temperature 98.5 F Temperature 98.0 F Temperature 98.6 F Temperature 97.8 F - Labs CBC & Chem 7: 12/22/18 04:21 12/24/18 06:42
[2018-12-24] MEDS: NORCO 5/325 PO PRN ×2 (10:22→21:08)
[2018-12-24] MEDS: K-DUR PO SCH (10:23)
[2018-12-24] MEDS: AUGMENTIN 875 MG PO SCH ×2 (10:23→21:08)
[2018-12-24] MEDS: HCTZ PO SCH (10:23)
[2018-12-24] MEDS: SENOKOT PO SCH ×2 (10:23→21:08)
[2018-12-24] MEDS: COZAAR PO SCH (10:23)
[2018-12-24] MEDS: DELTASONE PO SCH (10:23)
[2018-12-24] MEDS: SODIUM CHLORIDE FLUSH SYRINGE 10 ML IV SCH ×2 (10:24→21:21)
--- NOTE | 2018-12-24 11:10 | Progress Note ---
Assessment and Plan Assessment and plan: 83 year old woman who presented to the hospital after she was brought in by her daughter. She has multiple sores on her buttocks. And her daughter is not able to take care of her. Per patient she slid and fell and scraped her buttocks, she also has pain in her left upper extremity which started after a fall Pmh : rheumatoid arthritis , hypertension Diagnosis Multiple wounds and decubitus presents on admission L humerus fx Hypertension right big toe infection Active ongoing tobacco abuse /dependence History of alcohol abuse UTI hypokalemia Multiple pressure wounds all over body, POA FTT, debility elevated troponin Severe malnutrition Plan Wound care PT/OT following Left humerus fx, splinted, ortho consulted, planned for surgery Antibiotics, surgery consult for wound debridement, ID consult K replaced cardiology input appreciated, echo wnl, no further cardiac workup recommended, DVT ppx lovenox History Interval history: pain left arm Hospitalist Physical - Physical exam Narrative exam: Gen: Not in acute distress, lying in bed,ill looking, malnourished HEENT: Normocephalic, atraumatic Neck: supple, no JVD Heart: S1 and S2 reg, no murmurs, rubs or gallop Lungs: Clear, no crackles, no wheeze Abd: soft, non tender, non distended, normal BS Ext: Tender left arm. No edema, clubbing or cyanosis, Neuro: Awake,alert, oriented x 3, moves all ext, non focal - Constitutional Vitals: Temp Pulse Resp BP Pulse Ox 98.5 F 79 17 133/52 98 12/24/18 08:16 12/24/18 10:23 12/24/18 10:22 12/24/18 10:23 12/24/18 08:16 General appearance: Present: no acute distress Results - Labs CBC & Chem 7: 12/22/18 04:21 12/24/18 06:42 Labs: Laboratory Last Values WBC 9.9 K/mm3 (4.5-11.0) 12/22/18 04:21 RBC 2.79 M/mm3 (3.65-5.03) L 12/22/18 04:21 Hgb 9.3 gm/dl (10.1-14.3) L 12/22/18 04:21 Hct 27.2 % (30.3-42.9) L 12/22/18 04:21 MCV 97 fl (79-97) 12/22/18 04:21 MCH 33 pg (28-32) H 12/22/18 04:21 MCHC 34 % (30-34) 12/22/18 04:21 RDW 14.2 % (13.2-15.2) 12/22/18 04:21 Plt Count 491 K/mm3 (140-440) H 12/22/18 04:21 Lymph % (Auto) 15.3 % (13.4-35.0) 12/22/18 04:21 [place]uyler % (Auto) 8.9 % (0.0-7.3) H 12/22/18 04:21 Eos % (Auto) 1.1 % (0.0-4.3) 12/22/18 04:21 Baso % (Auto) 1.2 % (0.0-1.8) 12/22/18 04:21 Lymph # 1.5 K/mm3 (1.2-5.4) 12/22/18 04:21 [place]uyler # 0.9 K/mm3 (0.0-0.8) H 12/22/18 04:21 Eos # 0.1 K/mm3 (0.0-0.4) 12/22/18 04:21 Baso # 0.1 K/mm3 (0.0-0.1) 12/22/18 04:21 Seg Neutrophils % 73.5 % (40.0-70.0) H 12/22/18 04:21 Seg Neutrophils # 7.3 K/mm3 (1.8-7.7) 12/22/18 04:21 PT 12.4 Sec. (12.2-14.9) 12/20/18 16:22 INR 0.87 (0.87-1.13) 12/20/18 16:22 APTT 25.5 Sec. (24.2-36.6) 12/20/18 16:22 Sodium 133 mmol/L (137-145) L 12/23/18 06:36 Potassium 4.0 mmol/L (3.6-5.0) 12/24/18 06:42 Chloride 102.3 mmol/L (98-107) 12/23/18 06:36 Carbon Dioxide 20 mmol/L (22-30) L 12/23/18 06:36 14 mmol/L 12/23/18 06:36 BUN 8 mg/dL (7-17) 12/23/18 06:36 0.5 mg/dL (0.7-1.2) L 12/23/18 06:36 Estimated GFR > 60 ml/min 12/23/18 06:36 16 % 12/23/18 06:36 Glucose 81 mg/dL (65-100) 12/23/18 06:36 Lactic Acid 1.30 mmol/L (0.7-2.0) 12/20/18 16:22 Calcium 7.8 mg/dL (8.4-10.2) L 12/23/18 06:36 Magnesium 2.20 mg/dL (1.7-2.3) 12/24/18 06:42 0.20 mg/dL (0.1-1.2) 12/20/18 16:22 AST 16 units/L (5-40) 12/20/18 16:22 ALT 9 units/L (7-56) 12/20/18 16:22 99 units/L (35-129) 12/20/18 16:22 34.0 umol/L (25-60) 12/20/18 16:22 33 units/L (30-135) 12/20/18 16:22 0.075 ng/mL (0.00-0.029) H 12/21/18 17:05 5.8 g/dL (6.3-8.2) L 12/20/18 16:22 3.0 g/dL (3.9-5) L 12/20/18 16:22 1.1 % 12/20/18 16:22 Triglycerides 85 mg/dL (2-149) 12/20/18 16:22 Cholesterol 147 mg/dL (50-199) 12/20/18 16:22 70 mg/dL (50-130) 12/20/18 16:22 70 mg/dL (40-59) H 12/20/18 16:22 2.10 % 12/20/18 16:22 TSH 2.230 mlU/mL (0.270-4.200) 12/20/18 16:22 Yellow (Yellow) 12/20/18 20:04 Slightly-cloudy (Clear) 12/20/18 20:04 5.0 (5.0-7.0) 12/20/18 20:04 Ur Specific Pollock 1.014 (1.003-1.030) 12/20/18 20:04 <15 mg/dl mg/dL (Negative) 12/20/18 20:04 Neg mg/dL (Negative) 12/20/18 20:04 Neg mg/dL (Negative) 12/20/18 20:04 Sm (Negative) 12/20/18 20:04 Neg (Negative) 12/20/18 20:04 Neg (Negative) 12/20/18 20:04 < 2.0 mg/dL (<2.0) 12/20/18 20:04 Ur Leukocyte Esterase Lg (Negative) 12/20/18 20:04 29.0 /HPF (0.0-6.0) H 12/20/18 20:04 5.0 /HPF (0.0-6.0) 12/20/18 20:04 U Epithel Cells (Auto) 4.0 /HPF (0-13.0) 12/20/18 20:04 1+ /HPF (Negative) 12/20/18 20:04 Few /HPF 12/20/18 20:04 Salicylates < 0.3 mg/dL (2.8-20.0) L 12/20/18 16:22 Acetaminophen < 5.0 ug/mL (10.0-30.0) L 12/20/18 16:22 Active Medications - Current Medications Current Medications: Generic Name Dose Route Start Last Admin Trade Name Freq PRN Reason Stop Dose Admin Acetaminophen 650 mg 12/20/18 21:00 12/21/18 00:31 Tylenol PO 650 mg Q4H PRN Administration Pain MILD(1-3)/Fever >100.5/MUÑIZ Acetaminophen/Hydrocodone Bitart 1 each 12/21/18 01:09 12/24/18 10:22 Kirk 5/325 PO 1 each Q4H PRN Administration Pain, Moderate (4-6) Amoxicillin/Clavulanate Potassium 1 each 12/23/18 14:00 12/24/18 10:23 Augmentin 875 Mg PO 1 each Q12HR MARTIN Administration Enoxaparin Sodium 30 mg 12/24/18 10:00 Lovenox SUB-Q QDAY MARTIN Hydralazine HCl 10 mg 12/24/18 04:19 12/24/18 05:39 Apresoline IV 10 mg Q4H PRN Administration Blood Pressure Hydrochlorothiazide 12.5 mg 12/21/18 14:00 12/24/18 10:23 Hctz PO 12.5 mg QDAY MARTIN Administration Sodium Chloride 1,000 mls @ 50 mls/hr 12/20/18 21:00 12/23/18 05:31 Nacl 0.9% 1000 Ml IV 50 mls/hr DIRECT MARTIN Administration Losartan Potassium 100 mg 12/21/18 14:00 12/24/18 10:23 Cozaar PO 100 mg QDAY MARTIN Administration Morphine Sulfate 2 mg 12/24/18 06:23 12/24/18 06:58 Morphine IV 12/25/18 23:59 2 mg Q4H PRN Administration Pain, Moderate (4-6) Ondansetron HCl 4 mg 12/20/18 21:00 Zofran IV Q8H PRN Nausea And Vomiting Potassium Chloride 20 meq 12/23/18 10:00 12/24/18 10:23 K-Dur PO 20 meq QDAY MARTIN Administration Prednisone 5 mg 12/22/18 10:00 12/24/18 10:23 Deltasone PO 5 mg QDAY MARTIN Administration Senna 8.6 mg 12/20/18 22:00 12/24/18 10:23 Senokot PO 8.6 mg Q12HR MARTIN Administration Sodium Chloride 10 ml 12/20/18 22:00 12/24/18 10:24 Sodium Chloride Flush Syringe 10 Ml IV 10 ml BID MARTIN Administration Sodium Chloride 10 ml 12/20/18 21:00 12/22/18 14:04 Sodium Chloride Flush Syringe 10 Ml IV 10 ml PRN PRN Administration LINE FLUSH Nutrition/Malnutrition Assess - Dietary Evaluation Nutrition/Malnutrition Findings: Nutrition Notes Start: 12/21/18 14:16 Freq: Status: Active Protocol: Document 12/23/18 15:35 RM (Rec: 12/23/18 15:44 RM [email or web address]) Nutrition Notes Initial or Follow up Reassessment Current Diagnosis Hypertension Other Pertinent Diagnosis UTI, R great toe infection, Sacral PU, lower back PUs, Hx of alcohol abuse Current Diet [facility] soft Labs/Tests Reviewed Pertinent Medications Prednisone, Hydrochlorothiazide Height 5 ft 1 in Weight 33.3 kg [place] Body Weight (kg) 47.72 BMI 13.8 Subjective/Other Information Pt stated that her appetite is poor and that she eats 1/3 or less of her meals. Noted 2 unopened Ensure Clear 1 daily at bedside. Pt stated that she does not like them. Pt stated that she would like peanutbutter jelly sandwich for lunch. Percent of energy/protein needs met: 30%/31% Burn Absent Trauma Absent #1 Nutrition Diagnosis Malnutrition Diagnosis Progress(for reassessment Continues documentation) Is patient on ventilator? No Is Patient Ambulatory and/or Out of Bed No REE-([place]-confined to bed) 883.920 Kcal/Kg value to use for calculation 39 Approximate Energy Requirements Using 1299 kcal/Kg Calculation Used for Recommendations Kcal/kg Additional Notes Protein Needs: 40-50g (1.2-1. 5g/kg) Fluid Needs: 1 ml/kcal Nutrition Intervention Change Diet Order: Advance diet when medically able to full liquid Add Supplement/Snack (indicate name/kcal D/C /protein ) Goal #1 Diet advancement Follow-Up By: 12/25/18 Additional Comments Follow for PO and ONS intakes - Attestation Statement I have reviewed and agreed w/ Malnutrition eval & tx plan: Yes
[2018-12-24] MEDS: LOVENOX SUB-Q SCH (13:57)
[2018-12-24] MEDS: NACL 0.9% 1000 ML 1,000 ML IV SCH (17:06)
[2018-12-25] MEDS: MORPHINE IV PRN ×2 (05:25→22:26)
--- NOTE | 2018-12-25 09:27 | Progress Note ---
Assessment and Plan Assessment and plan: 83 year old woman who presented to the hospital after she was brought in by her daughter. She has multiple sores on her buttocks. And her daughter is not able to take care of her. Per patient she slid and fell and scraped her buttocks, she also has pain in her left upper extremity which started after a fall Pmh : rheumatoid arthritis , hypertension Diagnosis Multiple wounds and decubitus presents on admission L humerus fx Hypertension right big toe infection Active ongoing tobacco abuse /dependence History of alcohol abuse UTI hypokalemia Multiple pressure wounds all over body, POA FTT, debility elevated troponin Severe malnutrition Plan Wound care PT/OT following Left humerus fx, splinted, ortho consulted, planned for surgery today Antibiotics, surgery consult for wound debridement, ID consult K replaced cardiology input appreciated, echo wnl, no further cardiac workup recommended, DVT ppx lovenox History Interval history: pain left arm For surg today Hospitalist Physical - Physical exam Narrative exam: Gen: Not in acute distress, lying in bed,ill looking, malnourished HEENT: Normocephalic, atraumatic Neck: supple, no JVD Heart: S1 and S2 reg, no murmurs, rubs or gallop Lungs: Clear, no crackles, no wheeze Abd: soft, non tender, non distended, normal BS Ext: Tender left arm. No edema, clubbing or cyanosis, Neuro: Awake,alert, oriented x 3, moves all ext, non focal - Constitutional Vitals: Temp Pulse Resp BP Pulse Ox 98.0 F 72 18 137/52 97 12/25/18 07:54 12/25/18 07:54 12/25/18 07:54 12/25/18 07:54 12/25/18 07:54 General appearance: Present: no acute distress Results - Labs CBC & Chem 7: 12/22/18 04:21 12/24/18 06:42 Labs: Laboratory Last Values WBC 9.9 K/mm3 (4.5-11.0) 12/22/18 04:21 RBC 2.79 M/mm3 (3.65-5.03) L 12/22/18 04:21 Hgb 9.3 gm/dl (10.1-14.3) L 12/22/18 04:21 Hct 27.2 % (30.3-42.9) L 12/22/18 04:21 MCV 97 fl (79-97) 12/22/18 04:21 MCH 33 pg (28-32) H 12/22/18 04:21 MCHC 34 % (30-34) 12/22/18 04:21 RDW 14.2 % (13.2-15.2) 12/22/18 04:21 Plt Count 491 K/mm3 (140-440) H 12/22/18 04:21 Lymph % (Auto) 15.3 % (13.4-35.0) 12/22/18 04:21 Dixon % (Auto) 8.9 % (0.0-7.3) H 12/22/18 04:21 Eos % (Auto) 1.1 % (0.0-4.3) 12/22/18 04:21 Baso % (Auto) 1.2 % (0.0-1.8) 12/22/18 04:21 Lymph # 1.5 K/mm3 (1.2-5.4) 12/22/18 04:21 Dixon # 0.9 K/mm3 (0.0-0.8) H 12/22/18 04:21 Eos # 0.1 K/mm3 (0.0-0.4) 12/22/18 04:21 Baso # 0.1 K/mm3 (0.0-0.1) 12/22/18 04:21 Seg Neutrophils % 73.5 % (40.0-70.0) H 12/22/18 04:21 Seg Neutrophils # 7.3 K/mm3 (1.8-7.7) 12/22/18 04:21 PT 12.4 Sec. (12.2-14.9) 12/20/18 16:22 INR 0.87 (0.87-1.13) 12/20/18 16:22 APTT 25.5 Sec. (24.2-36.6) 12/20/18 16:22 Sodium 133 mmol/L (137-145) L 12/23/18 06:36 Potassium 4.0 mmol/L (3.6-5.0) 12/24/18 06:42 Chloride 102.3 mmol/L (98-107) 12/23/18 06:36 Carbon Dioxide 20 mmol/L (22-30) L 12/23/18 06:36 14 mmol/L 12/23/18 06:36 BUN 8 mg/dL (7-17) 12/23/18 06:36 0.5 mg/dL (0.7-1.2) L 12/23/18 06:36 Estimated GFR > 60 ml/min 12/23/18 06:36 16 % 12/23/18 06:36 Glucose 81 mg/dL (65-100) 12/23/18 06:36 Lactic Acid 1.30 mmol/L (0.7-2.0) 12/20/18 16:22 Calcium 7.8 mg/dL (8.4-10.2) L 12/23/18 06:36 Magnesium 2.20 mg/dL (1.7-2.3) 12/24/18 06:42 0.20 mg/dL (0.1-1.2) 12/20/18 16:22 AST 16 units/L (5-40) 12/20/18 16:22 ALT 9 units/L (7-56) 12/20/18 16:22 99 units/L (35-129) 12/20/18 16:22 34.0 umol/L (25-60) 12/20/18 16:22 33 units/L (30-135) 12/20/18 16:22 0.075 ng/mL (0.00-0.029) H 12/21/18 17:05 5.8 g/dL (6.3-8.2) L 12/20/18 16:22 3.0 g/dL (3.9-5) L 12/20/18 16:22 1.1 % 12/20/18 16:22 Triglycerides 85 mg/dL (2-149) 12/20/18 16:22 Cholesterol 147 mg/dL (50-199) 12/20/18 16:22 70 mg/dL (50-130) 12/20/18 16:22 70 mg/dL (40-59) H 12/20/18 16:22 2.10 % 12/20/18 16:22 TSH 2.230 mlU/mL (0.270-4.200) 12/20/18 16:22 Yellow (Yellow) 12/20/18 20:04 Slightly-cloudy (Clear) 12/20/18 20:04 5.0 (5.0-7.0) 12/20/18 20:04 Ur Specific [place] 1.014 (1.003-1.030) 12/20/18 20:04 <15 mg/dl mg/dL (Negative) 12/20/18 20:04 Neg mg/dL (Negative) 12/20/18 20:04 Neg mg/dL (Negative) 12/20/18 20:04 Sm (Negative) 12/20/18 20:04 Neg (Negative) 12/20/18 20:04 Neg (Negative) 12/20/18 20:04 < 2.0 mg/dL (<2.0) 12/20/18 20:04 Ur Leukocyte Esterase Lg (Negative) 12/20/18 20:04 29.0 /HPF (0.0-6.0) H 12/20/18 20:04 5.0 /HPF (0.0-6.0) 12/20/18 20:04 U Epithel Cells (Auto) 4.0 /HPF (0-13.0) 12/20/18 20:04 1+ /HPF (Negative) 12/20/18 20:04 Few /HPF 12/20/18 20:04 Salicylates < 0.3 mg/dL (2.8-20.0) L 12/20/18 16:22 Acetaminophen < 5.0 ug/mL (10.0-30.0) L 12/20/18 16:22 Active Medications - Current Medications Current Medications: Generic Name Dose Route Start Last Admin Trade Name Flaquitoq PRN Reason Stop Dose Admin Acetaminophen 650 mg 12/20/18 21:00 12/21/18 00:31 Tylenol PO 650 mg Q4H PRN Administration Pain MILD(1-3)/Fever >100.5/MUÑIZ Acetaminophen/Hydrocodone Bitart 1 each 12/21/18 01:09 12/24/18 21:08 [place] 5/325 PO 1 each Q4H PRN Administration Pain, Moderate (4-6) Amoxicillin/Clavulanate Potassium 1 each 12/23/18 14:00 12/24/18 21:08 Augmentin 875 Mg PO 1 each Q12HR MARTIN Administration Enoxaparin Sodium 30 mg 12/24/18 10:00 12/24/18 13:57 Lovenox SUB-Q 30 mg QDAY MARTIN Administration Hydralazine HCl 10 mg 12/24/18 04:19 12/24/18 05:39 Apresoline IV 10 mg Q4H PRN Administration Blood Pressure Hydrochlorothiazide 12.5 mg 12/21/18 14:00 12/24/18 10:23 Hctz PO 12.5 mg QDAY MARTIN Administration Sodium Chloride 1,000 mls @ 50 mls/hr 12/20/18 21:00 12/24/18 17:06 Nacl 0.9% 1000 Ml IV 50 mls/hr DIRECT MARTIN Administration Losartan Potassium 100 mg 12/21/18 14:00 12/24/18 10:23 Cozaar PO 100 mg QDAY MARTIN Administration Morphine Sulfate 2 mg 12/24/18 06:23 12/25/18 05:25 Morphine IV 12/25/18 23:59 2 mg Q4H PRN Administration Pain, Moderate (4-6) Ondansetron HCl 4 mg 12/20/18 21:00 Zofran IV Q8H PRN Nausea And Vomiting Potassium Chloride 20 meq 12/23/18 10:00 12/24/18 10:23 K-Dur PO 20 meq QDAY MARTIN Administration Prednisone 5 mg 12/22/18 10:00 12/24/18 10:23 Deltasone PO 5 mg QDAY MARTIN Administration Senna 8.6 mg 12/20/18 22:00 12/24/18 21:08 Senokot PO 8.6 mg Q12HR MARTIN Administration Sodium Chloride 10 ml 12/20/18 22:00 12/24/18 21:21 Sodium Chloride Flush Syringe 10 Ml IV 10 ml BID MARTIN Administration Sodium Chloride 10 ml 12/20/18 21:00 12/22/18 14:04 Sodium Chloride Flush Syringe 10 Ml IV 10 ml PRN PRN Administration LINE FLUSH Nutrition/Malnutrition Assess - Dietary Evaluation Nutrition/Malnutrition Findings: Nutrition Notes Start: 12/21/18 1 4:16 Freq: Status: Active Protocol: Document 12/23/18 15:35 RM (Rec: 12/23/18 15:44 RM [email or web address]) Nutrition Notes Initial or Follow up Reassessment Current Diagnosis Hypertension Other Pertinent Diagnosis UTI, R great toe infection, Sacral PU, lower back PUs, Hx of alcohol abuse Current Diet [facility] soft Labs/Tests Reviewed Pertinent Medications Prednisone, Hydrochlorothiazide Height 5 ft 1 in Weight 33.3 kg [place] Body Weight (kg) 47.72 BMI 13.8 Subjective/Other Information Pt stated that her appetite is poor and that she eats 1/3 or less of her meals. Noted 2 unopened Ensure Clear 1 daily at bedside. Pt stated that she does not like them. Pt stated that she would like peanutbutter jelly sandwich for lunch. Percent of energy/protein needs met: 30%/31% Burn Absent Trauma Absent #1 Nutrition Diagnosis Malnutrition Diagnosis Progress(for reassessment Continues documentation) Is patient on ventilator? No Is Patient Ambulatory and/or Out of Bed No REE-([facility]-confined to bed) 883.920 Kcal/Kg value to use for calculation 39 Approximate Energy Requirements Using 1299 kcal/Kg Calculation Used for Recommendations Kcal/kg Additional Notes Protein Needs: 40-50g (1.2-1. 5g/kg) Fluid Needs: 1 ml/kcal Nutrition Intervention Change Diet Order: Advance diet when medically able to full liquid Add Supplement/Snack (indicate name/kcal D/C /protein ) Goal #1 Diet advancement Follow-Up By: 12/25/18 Additional Comments Follow for PO and ONS intakes
[2018-12-25] MEDS: DELTASONE PO SCH (11:05)
[2018-12-25] MEDS: SODIUM CHLORIDE FLUSH SYRINGE 10 ML IV SCH (11:05)
[2018-12-25] MEDS: K-DUR PO SCH (11:05)
[2018-12-25] MEDS: HCTZ PO SCH ×2 (11:05→22:18)
[2018-12-25] MEDS: SENOKOT PO SCH (11:05)
[2018-12-25] MEDS: COZAAR PO SCH ×2 (11:05→22:18)
[2018-12-25] MEDS: LOVENOX SUB-Q SCH (11:06)
[2018-12-25] MEDS: AUGMENTIN 875 MG PO SCH ×2 (11:07→22:21)
[2018-12-25] MEDS ORDERED: MARCAINE 0.5% INFILTRATI ONE ×2 (11:51→14:30)
[2018-12-25] MEDS ORDERED: TORADOL ONE (11:51)
[2018-12-25] MEDS ORDERED: NACL 0.9% 50 ML ONE (11:52)
[2018-12-25] MEDS ORDERED: MARCAINE-EPI 0.25%-1:200,000 INFILTRATI ONE (11:52)
[2018-12-25] MEDS ORDERED: NACL 0.9% 100 ML ONE (11:52)
[2018-12-25] MEDS ORDERED: MORPHINE ONE (11:52)
[2018-12-25] MEDS ORDERED: NEOSPORIN GU IR ONE (11:59)
[2018-12-25] MEDS ORDERED: ANCEF/STERILE WATER 2 GM/20 ML IV NR (12:00)
[2018-12-25] MEDS ORDERED: LACTATED RINGERS 1,000 ML IV SCH (12:00)
[2018-12-25 12:11] LABS: Hematocrit 28.6 % (30.3-42.9); Hemoglobin 9.9 gm/dl (10.1-14.3); Mean Corpuscular HGB Conc 35 % (30-34); Mean Corpuscular Volume 95 fl (79-97); Platelet Count 539 K/mm3 (140-440); Red Blood Count 3.01 M/mm3 (3.65-5.03); Red Cell Distribution Width 14.1 % (13.2-15.2)
[2018-12-25] MEDS ORDERED: DIPRIVAN 10 MG/ML IV ONE (12:23)
[2018-12-25] MEDS ORDERED: ZEMURON IV ONE (12:23)
[2018-12-25 12:35] LABS: BUN/Creatinine Ratio 15; Blood Urea Nitrogen 6 mg/dL (7-17); Calcium 7.9 mg/dL (8.4-10.2); Hemolysis Index 3
[2018-12-25] MEDS ORDERED: SUBLIMAZE ONE (12:42)
--- NOTE | 2018-12-25 13:34 | Anesthesia Consultation ---
Anesthesia Consult and Med Hx - Airway Anesthetic Teeth Evaluation: Good ROM Head & Neck: Adequate Mallampati Class: Class II Intubation Access Assessment: Good - Pulmonary Exam CTA: Yes - Cardiac Exam Cardiac Exam: RRR - Pre-Operative Health Status ASA Pre-Surgery Classification: ASA3 Proposed Anesthetic Plan: General - Pulmonary Hx Smoking: Yes - Cardiovascular System Hx Hypertension: Yes - Gastrointestinal Hx Ulcer: Yes (portion of stomach removed) - Additional Comments Anesthesia Medical History Comments: Hx of HTN , RA on chonic steroids , smoker for GA
--- NOTE | 2018-12-25 13:35 | Anesthesia Day of Surgery ---
Anesthesia Day of Surgery - Day of Surgery Patient Examined: Yes Patient H&P Reviewed: Yes Patient is NPO: Yes
[2018-12-25] MEDS ORDERED: DILAUDID IV PRN (13:36)
[2018-12-25] MEDS ORDERED: ZOFRAN IV PRN (13:36)
[2018-12-25] MEDS ORDERED: ROBINUL ONE (14:06)
[2018-12-25] MEDS ORDERED: BLOXIVERZ ONE (14:06)
[2018-12-25] MEDS ORDERED: ZOFRAN ONE (14:06)
[2018-12-25] MEDS ORDERED: DECADRON ONE (14:06)
[2018-12-25] MEDS ORDERED: LACTATED RINGERS 1,000 ML ONE (14:12)
[2018-12-25] MEDS ORDERED: NACL 0.9% 250ML IV ONE (14:30)
[2018-12-25] MEDS ORDERED: NACL 0.9% IR ONE (14:30)
[2018-12-25] MEDS ORDERED: TORADOL IV ONE (14:30)
[2018-12-25] MEDS ORDERED: MORPHINE IM ONE (14:30)
[2018-12-25] MEDS ORDERED: MORPHINE IV PRN (14:47)
[2018-12-25] MEDS ORDERED: SODIUM CHLORIDE FLUSH SYRINGE 10 ML IV NR (15:00)
--- NOTE | 2018-12-25 15:20 | XRay Report ---
XRAY LEFT SHOULDER THREE VIEWS: 12/20/18 21:00:00 CLINICAL: Intraoperative. FINDINGS: A medical plate and screws traverse a transverse fracture of the humeral neck. Satisfactory alignment of fracture fragments. For more detail, please refer to the operative report.
--- NOTE | 2018-12-25 17:29 | Procedure Note ---
Date of procedure: 12/25/18 Pre-op diagnosis: 8-6-zofh-old left proximal humerus fracture with displacement Post-op diagnosis: same Procedure: Open reduction internal fixation left proximal humerus Procedure The patient was brought to the OR and placed on the OR table supine following induction and intubation by anesthesia the patient's left upper extremity was prepped and draped in the usual sterile manner she was placed in a beachchair position with a sandbag underneath the left shoulder. A timeout procedure was done to identify the patient and the correct operative site. A lateral incision was made along the proximal humerus this is taken down sharply through skin and subcutaneous the deltoid fascia and muscle was split in line with the skin incision this brought us down onto the fracture site patient was noted to have old clotted hematoma which was evacuated the humeral shaft was seen and exhibited early healing or callus formation next the in order to visualize the proximal fragment D rotator cuff tendon was split was then visualized on C-arm and was then manipulated into a more reduced position with the assistance of a K wire for mobility and temporary fixation. The axillary nerve and an artery were seen and protected next a locking plate was applied along the lateral border of the humerus next to the greater tuberosity patient was noted to have a large bony defect which necessitated use of cancellus bone allografting. Under C-arm visualization multiple locking screws were placed into the proximal fragment the shaft fragment was secured by way of 2 nonlocking screws AP and lateral views were obtained showing good reduction of fracture and placement of our hardware next the wound was copiously irrigated and was closed in a standard routine fashion starting with the deltoid fascia and rotator cuff tendon A postoperative pain cocktail consisting of morphine sulfate Toradol bupivacaine and saline was injected into the surrounding soft tissues for postoperative pain management routine postoperative dressings were applied the patient tolerated the procedure there were no complications Anesthesia: GETA Surgeon: TIM WARD (Kayla Ritter, 1st triage assistant) Estimated blood loss: 50-100ml Pathology: none Condition: stable Disposition: PACU
[2018-12-25] MEDS ORDERED: ANCEF/NS 1 GM/50 ML 1 GM/50 ML BAG IV SCH (20:00)
[2018-12-26 08:13] LABS: Hematocrit 26.2 % (30.3-42.9); Hemoglobin 9.2 gm/dl (10.1-14.3); Mean Corpuscular HGB Conc 35 % (30-34); Mean Corpuscular Volume 94 fl (79-97); Platelet Count 480 K/mm3 (140-440); Red Blood Count 2.78 M/mm3 (3.65-5.03)
[2018-12-26 08:33] LABS: BUN/Creatinine Ratio 18; Blood Urea Nitrogen 7 mg/dL (7-17); Calcium 7.6 mg/dL (8.4-10.2); Hemolysis Index 4
[2018-12-26] MEDS: COZAAR PO SCH (10:52)
[2018-12-26] MEDS: K-DUR PO SCH (10:53)
[2018-12-26] MEDS: HCTZ PO SCH (10:53)
[2018-12-26] MEDS: AUGMENTIN 875 MG PO SCH ×2 (10:53→22:00)
[2018-12-26] MEDS: LOVENOX SUB-Q SCH (10:53)
[2018-12-26] MEDS: SENOKOT PO SCH (10:54)
[2018-12-26] MEDS: DELTASONE PO SCH (10:55)
[2018-12-26] MEDS: SODIUM CHLORIDE FLUSH SYRINGE 10 ML IV SCH (10:55)
[2018-12-26] MEDS: MORPHINE IV PRN (11:08)
--- NOTE | 2018-12-26 14:42 | Progress Note ---
Assessment and Plan Assessment and plan: 83 year old woman who presented to the hospital after she was brought in by her daughter. She has multiple sores on her buttocks. And her daughter is not able to take care of her. Per patient she slid and fell and scraped her buttocks, she also has pain in her left upper extremity which started after a fall Pmh : rheumatoid arthritis , hypertension Diagnosis Multiple wounds and decubitus presents on admission L humerus fx Hypertension right big toe infection Active ongoing tobacco abuse /dependence History of alcohol abuse UTI hypokalemia Multiple pressure wounds all over body, POA FTT, debility elevated troponin Severe malnutrition Plan Wound care PT/OT following Left humerus fx s/p surgery yesterday 12/25 Antibiotics, surgery consult for wound debridement, ID consult K replaced cardiology input appreciated, echo wnl, no further cardiac workup recommended, SNF recommended but Insurance denied, now asking for updates DVT ppx lovenox History Interval history: pain left arm s/p surgery yesterday Hospitalist Physical - Physical exam Narrative exam: Gen: Not in acute distress, lying in bed,ill looking, malnourished HEENT: Normocephalic, atraumatic Neck: supple, no JVD Heart: S1 and S2 reg, no murmurs, rubs or gallop Lungs: Clear, no crackles, no wheeze Abd: soft, non tender, non distended, normal BS Ext: Tender left arm. Left arm in splint, no clubbing or cyanosis, Neuro: Awake,alert, oriented x 3, moves all ext, non focal - Constitutional Vitals: Temp Pulse Resp BP Pulse Ox 100.0 F H 91 H 18 137/56 98 12/26/18 07:36 12/26/18 10:52 12/26/18 11:08 12/26/18 10:52 12/26/18 08:25 General appearance: Present: no acute distress Results - Labs CBC & Chem 7: 12/26/18 07:59 12/26/18 07:59 Labs: Laboratory Last Values WBC 8.6 K/mm3 (4.5-11.0) 12/26/18 07:59 RBC 2.78 M/mm3 (3.65-5.03) L 12/26/18 07:59 Hgb 9.2 gm/dl (10.1-14.3) L 12/26/18 07:59 Hct 26.2 % (30.3-42.9) L 12/26/18 07:59 MCV 94 fl (79-97) 12/26/18 07:59 MCH 33 pg (28-32) H 12/26/18 07:59 MCHC 35 % (30-34) H 12/26/18 07:59 RDW 14.0 % (13.2-15.2) 12/26/18 07:59 Plt Count 480 K/mm3 (140-440) H 12/26/18 07:59 Lymph % (Auto) 15.3 % (13.4-35.0) 12/22/18 04:21 [place] % (Auto) 8.9 % (0.0-7.3) H 12/22/18 04:21 Eos % (Auto) 1.1 % (0.0-4.3) 12/22/18 04:21 Baso % (Auto) 1.2 % (0.0-1.8) 12/22/18 04:21 Lymph # 1.5 K/mm3 (1.2-5.4) 12/22/18 04:21 [place] # 0.9 K/mm3 (0.0-0.8) H 12/22/18 04:21 Eos # 0.1 K/mm3 (0.0-0.4) 12/22/18 04:21 Baso # 0.1 K/mm3 (0.0-0.1) 12/22/18 04:21 Seg Neutrophils % 73.5 % (40.0-70.0) H 12/22/18 04:21 Seg Neutrophils # 7.3 K/mm3 (1.8-7.7) 12/22/18 04:21 PT 12.4 Sec. (12.2-14.9) 12/20/18 16:22 INR 0.87 (0.87-1.13) 12/20/18 16:22 APTT 25.5 Sec. (24.2-36.6) 12/20/18 16:22 Sodium 133 mmol/L (137-145) L 12/26/18 07:59 Potassium 4.1 mmol/L (3.6-5.0) 12/26/18 07:59 Chloride 101.4 mmol/L (98-107) 12/26/18 07:59 Carbon Dioxide 19 mmol/L (22-30) L 12/26/18 07:59 17 mmol/L 12/26/18 07:59 BUN 7 mg/dL (7-17) 12/26/18 07:59 0.4 mg/dL (0.7-1.2) L 12/26/18 07:59 Estimated GFR > 60 ml/min 12/26/18 07:59 18 % 12/26/18 07:59 Glucose 82 mg/dL (65-100) 12/26/18 07:59 Lactic Acid 1.30 mmol/L (0.7-2.0) 12/20/18 16:22 Calcium 7.6 mg/dL (8.4-10.2) L 12/26/18 07:59 Magnesium 2.20 mg/dL (1.7-2.3) 12/24/18 06:42 0.20 mg/dL (0.1-1.2) 12/20/18 16:22 AST 16 units/L (5-40) 12/20/18 16:22 ALT 9 units/L (7-56) 12/20/18 16:22 99 units/L (35-129) 12/20/18 16:22 34.0 umol/L (25-60) 12/20/18 16:22 33 units/L (30-135) 12/20/18 16:22 0.075 ng/mL (0.00-0.029) H 12/21/18 17:05 5.8 g/dL (6.3-8.2) L 12/20/18 16:22 3.0 g/dL (3.9-5) L 12/20/18 16:22 1.1 % 12/20/18 16:22 Triglycerides 85 mg/dL (2-149) 12/20/18 16:22 Cholesterol 147 mg/dL (50-199) 12/20/18 16:22 70 mg/dL (50-130) 12/20/18 16:22 70 mg/dL (40-59) H 12/20/18 16:22 2.10 % 12/20/18 16:22 TSH 2.230 mlU/mL (0.270-4.200) 12/20/18 16:22 Yellow (Yellow) 12/20/18 20:04 Slightly-cloudy (Clear) 12/20/18 20:04 5.0 (5.0-7.0) 12/20/18 20:04 Ur Specific [place] 1.014 (1.003-1.030) 12/20/18 20:04 <15 mg/dl mg/dL (Negative) 12/20/18 20:04 Neg mg/dL (Negative) 12/20/18 20:04 Neg mg/dL (Negative) 12/20/18 20:04 Sm (Negative) 12/20/18 20:04 Neg (Negative) 12/20/18 20:04 Neg (Negative) 12/20/18 20:04 < 2.0 mg/dL (<2.0) 12/20/18 20:04 Ur Leukocyte Esterase Lg (Negative) 12/20/18 20:04 29.0 /HPF (0.0-6.0) H 12/20/18 20:04 5.0 /HPF (0.0-6.0) 12/20/18 20:04 U Epithel Cells (Auto) 4.0 /HPF (0-13.0) 12/20/18 20:04 1+ /HPF (Negative) 12/20/18 20:04 Few /HPF 12/20/18 20:04 Salicylates < 0.3 mg/dL (2.8-20.0) L 12/20/18 16:22 Acetaminophen < 5.0 ug/mL (10.0-30.0) L 12/20/18 16:22 Active Medications - Current Medications Current Medications: Generic Name Dose Route Start Last Admin Trade Name Freq PRN Reason Stop Dose Admin Acetaminophen 650 mg 12/20/18 21:00 12/21/18 00:31 Tylenol PO 650 mg Q4H PRN Administration Pain MILD(1-3)/Fever >100.5/MUÑIZ Acetaminophen/Hydrocodone Bitart 1 each 12/21/18 01:09 12/24/18 21:08 [place] 5/325 PO 1 each Q4H PRN Administration Pain, Moderate (4-6) Amoxicillin/Clavulanate Potassium 1 each 12/23/18 14:00 12/26/18 10:53 Augmentin 875 Mg PO 12/28/18 22:01 1 each Q12HR MARTIN Administration Enoxaparin Sodium 30 mg 12/24/18 10:00 12/26/18 10:53 Lovenox SUB-Q 30 mg QDAY MARTIN Administration Hydralazine HCl 10 mg 12/24/18 04:19 12/24/18 05:39 Apresoline IV 10 mg Q4H PRN Administration Blood Pressure Hydrochlorothiazide 12.5 mg 12/21/18 14:00 12/26/18 10:53 Hctz PO 12.5 mg QDAY MARTIN Administration Sodium Chloride 1,000 mls @ 50 mls/hr 12/20/18 21:00 12/24/18 17:06 Nacl 0.9% 1000 Ml IV 50 mls/hr DIRECT MARTIN Administration Losartan Potassium 100 mg 12/21/18 14:00 12/26/18 10:52 Cozaar PO 100 mg QDAY MARTIN Administration Morphine Sulfate 2 mg 12/25/18 14:47 12/26/18 11:08 Morphine IV 2 mg Q4H PRN Administration Pain, Moderate (4-6) Morphine Sulfate 4 mg 12/25/18 14:47 Morphine IV Q4H PRN Pain , Severe (7-10) Ondansetron HCl 4 mg 12/20/18 21:00 Zofran IV Q8H PRN Nausea And Vomiting Ondansetron HCl 4 mg 12/25/18 13:36 Zofran IV ONCE PRN Nausea And Vomiting Potassium Chloride 20 meq 12/23/18 10:00 12/26/18 10:53 K-Dur PO 20 meq QDAY MARTIN Administration Prednisone 5 mg 12/22/18 10:00 12/26/18 10:55 Deltasone PO 5 mg QDAY MARTIN Administration Senna 8.6 mg 12/20/18 22:00 12/26/18 10:54 Senokot PO Not Given Q12HR MARTIN Sodium Chloride 10 ml 12/20/18 22:00 12/26/18 10:55 Sodium Chloride Flush Syringe 10 Ml IV 10 ml BID MARTIN Administration Sodium Chloride 10 ml 12/20/18 21:00 12/22/18 14:04 Sodium Chloride Flush Syringe 10 Ml IV 10 ml PRN PRN Administration LINE FLUSH Nutrition/Malnutrition Assess - Dietary Evaluation Nutrition/Malnutrition Findings: Nutrition Notes Start: 12/21/18 14:16 Freq: Status: Active Protocol: Document 12/25/18 17:26 RM (Rec: 12/25/18 17:32 RM [id number]) Nutrition Notes Initial or Follow up Reassessment Current Diagnosis Hypertension Other Pertinent Diagnosis UTI, R great toe infection, Sacral PU, lower back PUs, Hx of alcohol abuse Current Diet Regular Labs/Tests Reviewed Pertinent Medications Reviewed Height 5 ft 1 in Weight 43.454 kg [place] Body Weight (kg) 47.72 BMI 18.1 Subjective/Other Information Pt not in room at time of visit. Recorded PO intake 50% X 1 meal. Percent of energy/protein needs met: 69%/100% Burn Absent Trauma Absent #1 Nutrition Diagnosis Malnutrition Diagnosis Progress(for reassessment Continues documentation) Is patient on ventilator? No Is Patient Ambulatory and/or Out of Bed No REE-([place]confined [facility] bed) 1005.648 Kcal/Kg value to use for calculation 39 Approximate Energy Requirements Using 1695 kcal/Kg Calculation Used for Recommendations Kcal/kg Additional Notes Protein Needs: 40-50g (1.2-1. 5g/kg) Fluid Needs: 1 ml/kcal Nutrition Intervention Change Diet Order: Continue current Goal #1 Meet at least 75% of calorie and protein needs via PO intakes Follow-Up By: 12/31/18 Additional Comments Follow for PO intakes
--- NOTE | 2018-12-26 17:39 | Progress Note ---
Assessment and Plan Status post open reduction and fixation left proximal humerus Physical therapy started for range of motion exercises left shoulder Subjective Date of service: 12/26/18 Interval history: Complaining of left shoulder pain otherwise doing well Objective Vital signs: Vital Signs - 12hr 12/26/18 12/26/18 12/26/18 07:36 07:37 08:25 Temperature 100.0 F H Pulse Rate 91 H 88 Respiratory 18 Rate Blood Pressure 137/56 O2 Sat by Pulse 95 97 98 Oximetry 12/26/18 12/26/18 12/26/18 10:52 11:08 13:29 Temperature 99.7 F H Pulse Rate 91 H 83 Respiratory 18 20 Rate Blood Pressure 137/56 144/56 O2 Sat by Pulse 99 Oximetry Incision: clean and dry Weight bearing status: as tolerated - Labs CBC & BMP: 12/26/18 07:59 12/26/18 07:59 Labs: Abnormal lab results 12/26/18 12/26/18 Range/Units 07:59 07:59 RBC 2.78 L (3.65-5.03) M/mm3 Hgb 9.2 L (10.1-14.3) gm/dl Hct 26.2 L (30.3-42.9) % MCH 33 H (28-32) pg MCHC 35 H (30-34) % Plt Count 480 H (140-440) K/mm3 Sodium 133 L (137-145) mmol/L Carbon Dioxide 19 L (22-30) mmol/L Creatinine 0.4 L (0.7-1.2) mg/dL Calcium 7.6 L (8.4-10.2) mg/dL
[2018-12-27] MEDS: MORPHINE IV PRN (00:29)
[2018-12-27] MEDS: SODIUM CHLORIDE FLUSH SYRINGE 10 ML IV SCH ×2 (00:30→09:36)
[2018-12-27] MEDS: NORCO 5/325 PO PRN (08:26)
[2018-12-27] MEDS: COZAAR PO SCH (09:32)
[2018-12-27] MEDS: AUGMENTIN 875 MG PO SCH (09:33)
[2018-12-27] MEDS: HCTZ PO SCH (09:33)
[2018-12-27] MEDS: LOVENOX SUB-Q SCH (09:34)
[2018-12-27] MEDS: DELTASONE PO SCH (09:34)
[2018-12-27] MEDS: K-DUR PO SCH (09:36)
[2018-12-27] MEDS: SENOKOT PO SCH (09:37)
--- NOTE | 2018-12-27 11:46 | Progress Note ---
Hospitalist Physical - Constitutional Vitals: Temp Pulse Resp BP Pulse Ox 98.9 F 75 22 130/52 98 12/27/18 07:48 12/27/18 09:32 12/27/18 09:38 12/27/18 09:32 12/27/18 07:48 General appearance: Present: no acute distress Results - Labs CBC & Chem 7: 12/26/18 07:59 12/26/18 07:59 Labs: Laboratory Last Values WBC 8.6 K/mm3 (4.5-11.0) 12/26/18 07:59 RBC 2.78 M/mm3 (3.65-5.03) L 12/26/18 07:59 Hgb 9.2 gm/dl (10.1-14.3) L 12/26/18 07:59 Hct 26.2 % (30.3-42.9) L 12/26/18 07:59 MCV 94 fl (79-97) 12/26/18 07:59 MCH 33 pg (28-32) H 12/26/18 07:59 MCHC 35 % (30-34) H 12/26/18 07:59 RDW 14.0 % (13.2-15.2) 12/26/18 07:59 Plt Count 480 K/mm3 (140-440) H 12/26/18 07:59 Lymph % (Auto) 15.3 % (13.4-35.0) 12/22/18 04:21 [place] % (Auto) 8.9 % (0.0-7.3) H 12/22/18 04:21 Eos % (Auto) 1.1 % (0.0-4.3) 12/22/18 04:21 Baso % (Auto) 1.2 % (0.0-1.8) 12/22/18 04:21 Lymph # 1.5 K/mm3 (1.2-5.4) 12/22/18 04:21 [place] # 0.9 K/mm3 (0.0-0.8) H 12/22/18 04:21 Eos # 0.1 K/mm3 (0.0-0.4) 12/22/18 04:21 Baso # 0.1 K/mm3 (0.0-0.1) 12/22/18 04:21 Seg Neutrophils % 73.5 % (40.0-70.0) H 12/22/18 04:21 Seg Neutrophils # 7.3 K/mm3 (1.8-7.7) 12/22/18 04:21 PT 12.4 Sec. (12.2-14.9) 12/20/18 16:22 INR 0.87 (0.87-1.13) 12/20/18 16:22 APTT 25.5 Sec. (24.2-36.6) 12/20/18 16:22 Sodium 133 mmol/L (137-145) L 12/26/18 07:59 Potassium 4.1 mmol/L (3.6-5.0) 12/26/18 07:59 Chloride 101.4 mmol/L (98-107) 12/26/18 07:59 Carbon Dioxide 19 mmol/L (22-30) L 12/26/18 07:59 17 mmol/L 12/26/18 07:59 BUN 7 mg/dL (7-17) 12/26/18 07:59 0.4 mg/dL (0.7-1.2) L 12/26/18 07:59 Estimated GFR > 60 ml/min 12/26/18 07:59 18 % 12/26/18 07:59 Glucose 82 mg/dL (65-100) 12/26/18 07:59 Lactic Acid 1.30 mmol/L (0.7-2.0) 12/20/18 16:22 Calcium 7.6 mg/dL (8.4-10.2) L 12/26/18 07:59 Magnesium 2.20 mg/dL (1.7-2.3) 12/24/18 06:42 0.20 mg/dL (0.1-1.2) 12/20/18 16:22 AST 16 units/L (5-40) 12/20/18 16:22 ALT 9 units/L (7-56) 12/20/18 16:22 99 units/L (35-129) 12/20/18 16:22 34.0 umol/L (25-60) 12/20/18 16:22 33 units/L (30-135) 12/20/18 16:22 0.075 ng/mL (0.00-0.029) H 12/21/18 17:05 5.8 g/dL (6.3-8.2) L 12/20/18 16:22 3.0 g/dL (3.9-5) L 12/20/18 16:22 1.1 % 12/20/18 16:22 Triglycerides 85 mg/dL (2-149) 12/20/18 16:22 Cholesterol 147 mg/dL (50-199) 12/20/18 16:22 70 mg/dL (50-130) 12/20/18 16:22 70 mg/dL (40-59) H 12/20/18 16:22 2.10 % 12/20/18 16:22 TSH 2.230 mlU/mL (0.270-4.200) 12/20/18 16:22 Yellow (Yellow) 12/20/18 20:04 Slightly-cloudy (Clear) 12/20/18 20:04 5.0 (5.0-7.0) 12/20/18 20:04 Ur Specific [place] 1.014 (1.003-1.030) 12/20/18 20:04 <15 mg/dl mg/dL (Negative) 12/20/18 20:04 Neg mg/dL (Negative) 12/20/18 20:04 Neg mg/dL (Negative) 12/20/18 20:04 Sm (Negative) 12/20/18 20:04 Neg (Negative) 12/20/18 20:04 Neg (Negative) 12/20/18 20:04 < 2.0 mg/dL (<2.0) 12/20/18 20:04 Ur Leukocyte Esterase Lg (Negative) 12/20/18 20:04 29.0 /HPF (0.0-6.0) H 12/20/18 20:04 5.0 /HPF (0.0-6.0) 12/20/18 20:04 U Epithel Cells (Auto) 4.0 /HPF (0-13.0) 12/20/18 20:04 1+ /HPF (Negative) 12/20/18 20:04 Few /HPF 12/20/18 20:04 Salicylates < 0.3 mg/dL (2.8-20.0) L 12/20/18 16:22 Acetaminophen < 5.0 ug/mL (10.0-30.0) L 12/20/18 16:22 Active Medications - Current Medications Current Medications: Generic Name Dose Route Start Last Admin Trade Name Freq PRN Reason Stop Dose Admin Acetaminophen 650 mg 12/20/18 21:00 12/21/18 00:31 Tylenol PO 650 mg Q4H PRN Administration Pain MILD(1-3)/Fever >100.5/MUÑIZ Acetaminophen/Hydrocodone Bitart 1 each 12/21/18 01:09 12/27/18 08:26 [place] 5/325 PO 1 each Q4H PRN Administration Pain, Moderate (4-6) Amoxicillin/Clavulanate Potassium 1 each 12/23/18 14:00 12/27/18 09:33 Augmentin 875 Mg PO 12/28/18 22:01 1 each Q12HR MARTIN Administration Enoxaparin Sodium 30 mg 12/24/18 10:00 12/27/18 09:34 Lovenox SUB-Q 30 mg QDAY MARTIN Administration Hydralazine HCl 10 mg 12/24/18 04:19 12/24/18 05:39 Apresoline IV 10 mg Q4H PRN Administration Blood Pressure Hydrochlorothiazide 12.5 mg 12/21/18 14:00 12/27/18 09:33 Hctz PO 12.5 mg QDAY MARTIN Administration Sodium Chloride 1,000 mls @ 50 mls/hr 12/20/18 21:00 12/24/18 17:06 Nacl 0.9% 1000 Ml IV 50 mls/hr DIRECT MARTIN Administration Losartan Potassium 100 mg 12/21/18 14:00 12/27/18 09:32 Cozaar PO 100 mg QDAY MARTIN Administration Morphine Sulfate 2 mg 12/25/18 14:47 12/27/18 00:29 Morphine IV 2 mg Q4H PRN Administration Pain, Moderate (4-6) Morphine Sulfate 4 mg 12/25/18 14:47 Morphine IV Q4H PRN Pain , Severe (7-10) Ondansetron HCl 4 mg 12/20/18 21:00 Zofran IV Q8H PRN Nausea And Vomiting Potassium Chloride 20 meq 12/23/18 10:00 12/27/18 09:36 K-Dur PO Not Given QDAY MARTIN Prednisone 5 mg 12/22/18 10:00 12/27/18 09:34 Deltasone PO 5 mg QDAY MARTIN Administration Senna 8.6 mg 12/20/18 22:00 12/27/18 09:37 Senokot PO Not Given Q12HR MARTIN Sodium Chloride 10 ml 12/20/18 22:00 12/27/18 09:36 Sodium Chloride Flush Syringe 10 Ml IV 10 ml BID MARTIN Administration Sodium Chloride 10 ml 12/20/18 21:00 12/22/18 14:04 Sodium Chloride Flush Syringe 10 Ml IV 10 ml PRN PRN Administration LINE FLUSH Nutrition/Malnutrition Assess - Dietary Evaluation Nutrition/Malnutrition Findings: Nutrition Notes Start: 12/21/18 14:16 Freq: Status: Active Protocol: Document 12/25/18 17:26 RM (Rec: 12/25/18 17:32 RM [id number]) Nutrition Notes Initial or Follow up Reassessment Current Diagnosis Hypertension Other Pertinent Diagnosis UTI, R great toe infection, Sacral PU, lower back PUs, Hx of alcohol abuse Current Diet Regular Labs/Tests Reviewed Pertinent Medications Reviewed Height 5 ft 1 in Weight 43.454 kg [place] Body Weight (kg) 47.72 BMI 18.1 Subjective/Other Information Pt not in room at time of visit. Recorded PO intake 50% X 1 meal. Percent of energy/protein needs met: 69%/100% Burn Absent Trauma Absent #1 Nutrition Diagnosis Malnutrition Diagnosis Progress(for reassessment Continues documentation) Is patient on ventilator? No Is Patient Ambulatory and/or Out of Bed No REE-([place]-confined to bed) 1005.648 Kcal/Kg value to use for calculation 39 Approximate Energy Requirements Using 1695 kcal/Kg Calculation Used for Recommendations Kcal/kg Additional Notes Protein Needs: 40-50g (1.2-1. 5g/kg) Fluid Needs: 1 ml/kcal Nutrition Intervention Change Diet Order: Continue current Goal #1 Meet at least 75% of calorie and protein needs via PO intakes Follow-Up By: 12/31/18 Additional Comments Follow for PO intakes
--- NOTE | 2018-12-27 13:53 | Discharge Summary ---
Providers - Providers Date of Admission: 12/20/18 21:00 Date of discharge: 12/27/18 Attending physician: VISHAL HOLBROOK 12/21/18 00:11 Consult to Wound/ET Nurse [CONS] Routine Reason For Exam: wound eval 12/21/18 01:08 Physical Therapy Evaluation and Treat [CONS] Routine Comment: gait instability after hip fracture Reason For Exam: wheelchair bound 12/21/18 02:49 Consult to Physician [CONS] Routine Comment: Consulting Provider: VICTORIA YBARRA Physician Instructions: Reason For Exam: toe infection 12/21/18 13:13 Consult to Physician [CONS] Routine Comment: Consulting Provider: LOGAN FAIRCHILD Physician Instructions: Reason For Exam: toe infection Consult to Physician [CONS] Routine Comment: Consulting Provider: VICTORIA YBARRA Physician Instructions: Reason For Exam: r big toe infection 12/21/18 15:01 Occupational Therapy Evaluate and Treat [CONS] Routine Comment: Reason For Exam: debility Speech Therapy Evaluation and Treat [CONS] Routine Reason For Exam: dysphagia 12/22/18 17:48 Consult to Physician [CONS] Routine Comment: RIMA Consulting Provider: TIM COLLIER Physician Instructions: WAS NOTIFIED Reason For Exam: left humeral fx 12/25/18 14:51 Physical Therapy Evaluation and Treat [CONS] Routine Comment: please instruct on pendulum exercises Reason For Exam: postop evaluation Weight bearing status?: Full wt bearing Hospitalization Condition: Fair Hospital course: patient is 3 year old woman who presented to the hospital after she was brought in by her daughter. She has multiple sores on her buttocks. And her daughter is not able to take care of her. Per patient she slid and fell and scraped her buttocks, she also had pain in her left upper extremity which started after a fall. She was evaluated in ED and Xray reveal fracture left humerus with displacement. She was admitted and orthopedic surgeon consulted. He did open reduction internal fixation on 12/25/2018. Diagnosis Multiple wounds and decubitus presents on admission L humerus fracture Hypertension right big toe infection Active ongoing tobacco abuse /dependence History of alcohol abuse UTI hypokalemia Multiple pressure wounds all over body, POA FTT, debility elevated troponin Severe malnutrition Plan Wound care PT/OT following Left humerus fx s/p surgery ORIF 12/25 Antibiotics, surgery consult for wound debridement, ID consult no further cardiac workup was recommended, SNF recommended but Insurance denied, so was discharged home with home health. Disposition: [id number] HOME UNDER HOME HLTH - Discharge Diagnoses (1) Humerus fracture Status: Acute (2) Failure to thrive Status: Acute (3) COPD (chronic obstructive pulmonary disease) Status: Acute Qualifiers: COPD type: unspecified COPD Qualified Code(s): J44.9 - Chronic obstructive pulmonary disease, unspecified (4) Decubital ulcer Status: Acute Qualifiers: Pressure injury location: sacral region Pressure injury stage: unspecified pressure injury stage Qualified Code(s): L89.159 - Pressure ulcer of sacral region, unspecified stage (5) UTI (urinary tract infection) Status: Acute Qualifiers: Urinary tract infection type: acute cystitis Hematuria presence: with hematuria Qualified Code(s): N30.01 - Acute cystitis with hematuria (6) UTI (urinary tract infection) Status: Acute (7) Malnutrition Status: Acute Core Measure Documentation - Palliative Care Palliative Care/ Comfort Measures: Not Applicable - Core Measures Any of the following diagnoses?: none Exam - Constitutional Vitals: Temp Pulse Resp BP Pulse Ox 98.9 F 75 22 130/52 98 12/27/18 07:48 12/27/18 09:32 12/27/18 09:38 12/27/18 09:32 12/27/18 07:48 Plan Activity: advance as tolerated Diet: regular Special Instructions: physical therapy, home health RN Additional Instructions: 1.Follow up with PCP in 1 week. 2.Follow up with Dr. Collier, Orthopedic Surgeon in 1 week. 3.Follow up with Personal Injury Legal Assistant in 1 week Follow up with: BRANDI BRYSON MD [Other] - 3-5 Days Prescriptions: Amoxicillin/K Clav Tab [Augmentin 875MG TAB] 1 each PO Q12HR #4 tablet HYDROcodone/APAP 5-325 [[place] 5-325 mg TAB] 1 each PO Q6H PRN #12 tablet PRN Reason: Pain, Moderate (4-6)
[2018-12-27 21:44] VITALS: BP 162/62
== END 2018-12-27 17:30 | disposition home health service (06) | DRG 492 ==
LOC: ED 15:37 → 2B-ACE 21:00
PROVIDERS: ADMIT Internal Medicine; ATTEND Internal Medicine
PROC: 0PSD04Z Reposition Left Humeral Head with Internal Fixation Device, Open Approach (ICD-10-PCS; principal; 2018-12-25)
PROC: 0PU Upper Bones, Supplement (ICD-10-PCS; 2018-12-25)
DX: S42.292A Other displaced fracture of upper end of left humerus, initial encounter for closed fracture (principal); E43 Unspecified severe protein-calorie malnutrition; E87.1 Hypo-osmolality and hyponatremia; G93.40 Encephalopathy, unspecified; N30.01 Acute cystitis with hematuria; E87.6 Hypokalemia; L89.152 Pressure ulcer of sacral region, stage 2; I10 Essential (primary) hypertension; R26.9 Unspecified abnormalities of gait and mobility; L08.89 Other specified local infections of the skin and subcutaneous tissue; F17.200 Nicotine dependence, unspecified, uncomplicated; J44.9 Chronic obstructive pulmonary disease, unspecified; L03.031 Cellulitis of right toe; L89.892 Pressure ulcer of other site, stage 2; W18.39XA Other fall on same level, initial encounter; Z79.899 Other long term (current) drug therapy; Z72.89 Other problems related to lifestyle; Z90.49 Acquired absence of other specified parts of digestive tract; Z90.710 Acquired absence of both cervix and uterus; Y93.89 Activity, other specified; Y92.89 Other specified places as the place of occurrence of the external cause; Y99.8 Other external cause status
CPT/HCPCS: 36415; 70450; 71045; 80048; 80053; 80061; 80320; 81001; 82140; 82550; 83735; 84132; 84443; 84484; 85025; 85027; 85610; 85730; 87040; 87086; 87116; 93005; 93010; 93306; 99406; G0378; C1713; G0480; J0360; J0690; J0696; J1100; J1650; J1885; J2270; J2405; J2543; J2704; J2710; J3010; J3475; J7030; J7050; J7120; J7512

== ENCOUNTER 2019-01-13 21:03 | Emergency (ER) | payer MEDICARE | END 2019-01-14 01:00 | disposition left against medical advice (07) | LOC: ED 21:03 | DX: I10 Essential (primary) hypertension (principal); Z53.21 Procedure and treatment not carried out due to patient leaving prior to being seen by health care provider ==

== ENCOUNTER 2019-01-29 01:31 | Emergency (ER) | payer MEDICARE ==
[2019-01-29 02:12] LABS: Basophils % (Auto) 0.6 % (0.0-1.8); Eosinophils # (Auto) 0.1 K/mm3 (0.0-0.4); Eosinophils % (Auto) 0.9 % (0.0-4.3); Hematocrit 29.8 % (30.3-42.9); Lymphocytes # (Auto) 3.1 K/mm3 (1.2-5.4); Mean Corpuscular HGB Conc 34 % (30-34); Mean Corpuscular Volume 94 fl (79-97); Monocytes # (Auto) 0.7 K/mm3 (0.0-0.8); Monocytes % (Auto) 7.9 % (0.0-7.3); Platelet Count 439 K/mm3 (140-440); Red Blood Count 3.16 M/mm3 (3.65-5.03)
[2019-01-29 02:33] LABS: BUN/Creatinine Ratio 34; Blood Urea Nitrogen 24 mg/dL (7-17); Calcium 8.3 mg/dL (8.4-10.2); Hemolysis Index 10
[2019-01-29] MEDS ORDERED: K-DUR PO ONE (02:46)
[2019-01-29 03:51] LABS: Bilirubin,Urine NEG (Negative); Blood,Urine NEG (Negative); Color,Urine Yellow (Yellow); Mucus,Urine FEW /HPF; Protein,Urine <15 mg/dL mg/dL (Negative); Urobilinogen,Urine < 2.0 mg/dL (<2.0)
[2019-01-29 04:00] LABS: Amphetamine Screen,Urine PRESUMPTIVE NEGATIVE; Benzodiazepines Screen,Urine PRESUMPTIVE NEGATIVE; Cannabinoid Screen,Urine PRESUMPTIVE NEGATIVE; Cocaine Screen,Urine PRESUMPTIVE NEGATIVE; Methadone Screen,Urine PRESUMPTIVE NEGATIVE; Opiate Screen,Urine PRESUMPTIVE NEGATIVE
--- NOTE | 2019-01-29 04:41 | Emergency Department Report ---
HPI <GERALD STEWARD - Last Filed: 01/30/19 16:59> - HPI HPI: 83-year-old -Irish female presents to the emergency department, brought in by her [id number], for a mental health evaluation and possibly some assistance with placement. The patient herself says that there is no reason why she is at the emergency department. The patient says that her children are trying to "get rid of me" in terms of a placement somewhere. The patient says that she is independent and wants to get back to her "routine." She has a past medical history of rheumatoid arthritis, hypertension. She is a tobacco smoker and does drink alcohol occasionally. She denies any illicit drugs. The patient's hzasptlv-xg-hxp says that the patient has been living with them since Mother's Day because she has had recurrent falls while she was living alone in [place]. The patient denies that there are recurrent falls but does admit to one fall that led to a broken arm. This was surgically repaired here last month. She has been living with him since that time. The [id number]-oe-svd says that the patient has been showing some signs of confusion and agitation. She says that he patient was trying to break the windows in the house today. The patient does admit to making this attempt and says it was because she was being forced to come to the emergency department. The daughter says that this occurred because she was not given enough cigarettes. <JEOVANY THOMSON S - Last Filed: 02/03/19 16:12> - General Chief Complaint: Psych Time Seen by Provider: 01/29/19 02:23 ED Past Medical Hx <GERALD STEWARD - Last Filed: 01/30/19 16:59> - Past Medical History Previous Medical History?: Yes Hx Hypertension: Yes Hx Arthritis: Yes Additional medical history: Decubitis wounds x 3, ulcers - Surgical History Past Surgical History?: No - Social History Smoking Status: Current Every Day Smoker Substance Use Type: None <JEOVANY THOMSON - Last Filed: 02/03/19 16:12> - Medications Home Medications: Home Medications Medication Instructions Recorded Confirmed Last Taken Type Losartan/Hydrochlorothiazide 100 mg PO DAILY 12/20/18 01/29/19 01/28/19 10:00 History Prednisone [predniSONE (Ravinder) ER 5 mg PO QDAY MDD Rheumatoid 12/20/18 01/29/19 12/19/18 21:00 History TAB] arthritis Donepezil [Aricept] 5 mg PO HS #30 tablet 01/30/19 Unknown Rx Donepezil [Aricept] 5 mg PO QHS tablet 01/30/19 Unknown Rx ED Review of Systems ROS: Stated complaint: CONFUSION MH EVALUATION Other details as noted in HPI <GERALD STEWARD - Last Filed: 01/30/19 16:59> ROS: Stated complaint: CONFUSION MH EVALUATION Other details as noted in HPI Comment: All other systems reviewed and negative Constitutional: denies: chills, fever Eyes: denies: eye pain, vision change ENT: denies: ear pain, throat pain Respiratory: denies: cough, shortness of breath Cardiovascular: denies: chest pain, palpitations Gastrointestinal: denies: abdominal pain, vomiting Genitourinary: denies: dysuria, frequency Musculoskeletal: denies: back pain, arthralgia Skin: denies: rash, lesions Neurological: denies: headache, weakness <JEOVANY THOMSON - Last Filed: 02/03/19 16:12> Physical Exam - Physical Exam Vital Signs: Vital Signs 01/29/19 01/29/19 01/29/19 01:34 08:38 10:56 Temperature 98.0 F 97.0 F L Pulse Rate 52 L 59 L 65 Respiratory 18 16 18 Rate Blood Pressure 168/72 Blood Pressure 161/71 151/71 [Left] O2 Sat by Pulse 100 100 Oximetry 01/29/19 01/29/19 01/29/19 11:40 18:25 20:00 Temperature 98 F 98.1 F Pulse Rate 65 80 76 Respiratory 18 16 Rate Blood Pressure Blood Pressure 137/56 168/70 168/89 [Left] O2 Sat by Pulse 100 95 Oximetry 01/30/19 14:00 Temperature 98.6 F Pulse Rate 48 L Respiratory 20 Rate Blood Pressure Blood Pressure 109/47 [Left] O2 Sat by Pulse 99 Oximetry <GERALD STEWARD - Last Filed: 01/30/19 16:59> - Physical Exam Vital Signs: Vital Signs 01/29/19 01:34 Temperature 98.0 F Pulse Rate 52 L Respiratory 18 Rate Blood Pressure 168/72 O2 Sat by Pulse 100 Oximetry Physical Exam: GENERAL: The patient is well-developed well-nourished. HENT: Normocephalic. Atraumatic. Patient has moist mucous membranes. EYES: Extraocular motions are intact. NECK: Supple. Trachea is midline. CHEST/LUNGS: Clear to auscultation. There is no respiratory distress noted. HEART/CARDIOVASCULAR: Regular. There is no tachycardia. There is no murmur. ABDOMEN: Abdomen is soft, nontender. Patient has normal bowel sounds. There is no abdominal distention. SKIN: Skin is warm and dry. NEURO: The patient is awake, alert, and cooperative. The patient has no focal neurologic deficits. The patient has normal speech. Cranial nerves II through XII grossly intact. MUSCULOSKELETAL: There is no tenderness or deformity. There is no evidence of acute injury. <JEOVANY THOMSON - Last Filed: 02/03/19 16:12> ED Course Vital Signs 01/29/19 01/29/19 01/29/19 01:34 08:38 10:56 Temperature 98.0 F 97.0 F L Pulse Rate 52 L 59 L 65 Respiratory 18 16 18 Rate Blood Pressure 168/72 Blood Pressure 161/71 151/71 [Left] O2 Sat by Pulse 100 100 Oximetry 01/29/19 01/29/19 01/29/19 11:40 18:25 20:00 Temperature 98 F 98.1 F Pulse Rate 65 80 76 Respiratory 18 16 Rate Blood Pressure Blood Pressure 137/56 168/70 168/89 [Left] O2 Sat by Pulse 100 95 Oximetry 01/30/19 14:00 Temperature 98.6 F Pulse Rate 48 L Respiratory 20 Rate Blood Pressure Blood Pressure 109/47 [Left] O2 Sat by Pulse 99 Oximetry <GERALD STEWARD - Last Filed: 01/30/19 16:59> Vital Signs 01/29/19 01:34 Temperature 98.0 F Pulse Rate 52 L Respiratory 18 Rate Blood Pressure 168/72 O2 Sat by Pulse 100 Oximetry <JEOVANY THOMSON - Last Filed: 02/03/19 16:12> ED Medical Decision Making - Lab Data Result diagrams: 01/29/19 01:45 01/29/19 01:45 - Medical Decision Making Patient seen by our mental health assessors and patient is calm and cooperative at this time. Patient has a history of dementia and will be started on Aricept. Patient to be discharged home back to her family. <GERALD STEWARD - Last Filed: 01/30/19 16:59> - Lab Data Result diagrams: 01/29/19 01:45 01/29/19 01:45 - Medical Decision Making This patient was brought in by family for a mental health evaluation. The patient herself does not feel that there is anything wrong with her. She denies being told that there may be some early stages of dementia. She denies being told that she has an appearance of COPD despite having a 50 year pack history and continuing to smoke. The patient does admit to trying to break out the windows in her son and gauerbtz-ge-dtd's house but justifies it as saying that she was being forced to come to the emergency department, something she did not want to do. Apparently, per the [id number]-ll-xen, the patient has been showing some increased agitation and some intermittent confusion. The patient still b elieves that she is capable of going back to [place] and living independently. This does not appear to be likely. However this continued living situation of staying with her son and [id number]-lp-rab also does not necessarily appear to be a long-term solution. However the patient is not willing to consider any type of fci or assisted living facility. Patient's labs are mostly unremark able. She had some mild hypokalemia that was replaced with potassium chloride. Her vital signs were stable throughout her ED course this far. The patient will be seen by the psychiatric team and the case management team in the morning to best figure out the appropriate disposition. <JEOVANY THOMSON S - Last Filed: 02/03/19 16:12> Critical care attestation.: If time is entered above; I have spent that time in minutes in the direct care of this critically ill patient, excluding procedure time. <GERALD STEWARD - Last Filed: 01/30/19 16:59> Critical Care Time: No Critical care attestation.: If time is entered above; I have spent that time in minutes in the direct care of this critically ill patient, excluding procedure time. <JEOVANY THOMSON - Last Filed: 02/03/19 16:12> ED Disposition Is pt being admited?: No Does the pt Need Aspirin: No Time of Disposition: 17:03 <GERALD STEWARD - Last Filed: 01/30/19 16:59> <JEOVANY THOMSON S - Last Filed: 02/03/19 16:12> Clinical Impression: Hypokalemia, Hypertension Senile dementia with acute confusional state Qualifiers: Dementia behavioral disturbance: with behavioral disturbance Qualified Code(s): F03.91 - Unspecified dementia with behavioral disturbance Disposition: DC-01 TO HOME OR SELFCARE Condition: Stable Instructions: Hypertension (ED) Prescriptions: Donepezil [Aricept] 5 mg PO HS #30 tablet Referrals: SONJA BALLARD MD [Primary Care Provider] - 3-5 Days
--- NOTE | 2019-01-29 14:40 | Consultation ---
History of Present Illness - Reason for Consult Consult date: 01/29/19 Reason for consult: Initial Psychiatric Evaluation - History of Present Psychiatric Illness Patient is an 83 year female 8 that presents to the emergency department, brought in by her [id number], for a mental health evaluation and possibly some assistance with placement. The patient herself says that there is no reason why she is at the emergency department. The patient says that her children are trying to "get rid of me" in terms of a placement somewhere. Current Psychiatric Medications: Past Psychiatric History: History of Drug/Alcohol Abuse: History of Trauma/Abuse: Social History: Family History of Psychiatric Illness: Mental Status Exam: Appearance: calm Behavior: poor eye contact Speech: regular rate and tone Mood: Affect: Thought Process: Thought Content: denies HI's and AVH's Motor Activity: sitting up in the bed Cognition: A/O x 3 Insight: Judgment: Impression: . Today the patient is calm and cooperative during the assessment . DDx: Recommendation/Plan: Discussed possible suicidality/medication induced edward with the patient reference antidepressants, he verbalized understanding. Disposition: Will staff with Dr Yasemin Osullivan. Medications and Allergies Allergies Allergy/AdvReac Type Severity Reaction Status Date / Time No Known Allergies Allergy Verified 12/20/18 15:39 Home Medications Medication Instructions Recorded Confirmed Last Taken Type Losartan/Hydrochlorothiazide 100 mg PO DAILY 12/20/18 12/21/18 Unknown History Prednisone [predniSONE (Ravinder) ER 5 mg PO QDAY MDD Rheumatoid 12/20/18 12/20/18 12/19/18 21:00 History TAB] arthritis Amoxicillin/K Clav Tab [Augmentin 1 each PO Q12HR #4 tablet 12/27/18 Unknown Rx 875MG TAB] HYDROcodone/APAP 5-325 [[place] 1 each PO Q6H PRN #12 tablet 12/27/18 Unknown Rx 5-325 mg TAB] Mental Status Exam - Vital signs Last Vital Signs Temp 98 F 01/29/19 11:40 Pulse 65 01/29/19 11:40 Resp 18 01/29/19 11:40 BP 137/56 01/29/19 11:40 Pulse Ox 100 01/29/19 11:40 Results Result Diagrams: 01/29/19 01:45 01/29/19 01:45 Abnormal lab results 01/29/19 01/29/19 01/29/19 Range/Units 01:40 01:43 01:45 RBC (3.65-5.03) M/mm3 Hgb (10.1-14.3) gm/dl Hct (30.3-42.9) % Lymph % (Auto) (13.4-35.0) % [place] % (Auto) (0.0-7.3) % Potassium 3.2 L (3.6-5.0) mmol/L BUN 24 H (7-17) mg/dL Calcium 8.3 L (8.4-10.2) mg/dL Salicylates < 0.3 L (2.8-20.0) mg/dL Acetaminophen < 5.0 L (10.0-30.0) ug/mL 01/29/19 Range/Units 01:45 RBC 3.16 L (3.65-5.03) M/mm3 Hgb 10.0 L (10.1-14.3) gm/dl Hct 29.8 L (30.3-42.9) % Lymph % (Auto) 36.0 H (13.4-35.0) % [place] % (Auto) 7.9 H (0.0-7.3) % Potassium (3.6-5.0) mmol/L BUN (7-17) mg/dL Calcium (8.4-10.2) mg/dL Salicylates (2.8-20.0) mg/dL Acetaminophen (10.0-30.0) ug/mL All other labs normal.
[2019-01-30] MEDS ORDERED: TYLENOL ONE ×2 (04:16→19:34)
[2019-01-30] MEDS ORDERED: TYLENOL PO ONE ×2 (04:22→19:54)
--- NOTE | 2019-01-30 14:55 | Consultation ---
History of Present Illness - Reason for Consult Consult date: 01/30/19 Reason for consult: Mental Health evaluation Requesting physician: JEOVANY THOMSON - Chief Complaint Chief complaint: 'I am here for pain" - History of Present Psychiatric Illness 83 y.o. LUCA youngblood who presented to the ER for aggressive behavior per her family. Today the patient was calm with some confusion during the assessment. She was able to stated the past/current [place] Presidents. She was only able to recall 1/3 numbers in 5 mns. She is adamant that she was brought to the ER for generalized pain. She stated that her family takes good care of her. Per collateral information from her daughter Ms Griffith at [phone], she s tated that her mother have been somewhat aggressive in the afternoon into the night. She stated that she does not want her mother going to a mental health facility. She stated that the family is seeking help and would like information about a SNF. She stated that she can pick her mother up today if discharged. The patient denies being abused while living with her family. She denies SI/HI's and AVH's. Per the staff, no behavioral disturbances overnight by the patient. Overall, the patient have been pleasant since her arrival to the ER. The patient stated that she ate her breakfast today. . Medications and Allergies Allergies Allergy/AdvReac Type Severity Reaction Status Date / Time No Known Allergies Allergy Verified 12/20/18 15:39 Home Medications Medication Instructions Recorded Confirmed Last Taken Type Losartan/Hydrochlorothiazide 100 mg PO DAILY 12/20/18 01/29/19 01/28/19 10:00 History Prednisone [predniSONE (Ravinder) ER 5 mg PO QDAY MDD Rheumatoid 12/20/18 01/29/19 12/19/18 21:00 History TAB] arthritis Donepezil [Aricept] 5 mg PO HS #30 tablet 01/30/19 Unknown Rx Donepezil [Aricept] 5 mg PO QHS tablet 01/30/19 Unknown Rx Past psychiatric history - Past Medical History Past Medical History: hypertension, other (Arthritis, Arm/Shoulder injury) - past Psychiatric treatment and history psychiatric treatment history: Denies a psy hx and fam psy h x. - Social History Social history: lives with family Mental Status Exam - Vital signs Last Vital Signs Temp 98.6 F 01/30/19 14:00 Pulse 48 L 06/27/19 14:00 Resp 20 01/30/19 14:00 BP 109/47 01/30/19 14:00 Pulse Ox 99 01/30/19 14:00 - Exam Narrative exam: MSE: Appearance: calm, cooperative Behavior: regular eye contact Speech: regular rate and tone Mood: "okay" Affect: congruent to mood Thought Process: circumstantial Thought Content: denies SI/HI's and AVH's Motor Activity: sitting up in the bed Cognition: A/O x 2, with some confusion Insight: variable Judgment: variable to fair Results Result Diagrams: 01/29/19 01:45 01/29/19 01:45 All other labs normal. Assessment and Plan Assessment and plan: Impression: Unspecified Neuro Cog DO. Today the patient was calm with some confusion during the assessment. DDx: Dementia Recommendation/Plan: Start Aricept 5 mg PO HS for dementia symptoms. Discussed risk/benefits of the medication with the patient's daughter, she verbalized understanding. Case Mgmt involvement, the patient's daughters is interested in SNF placement Ms Griffith can be reached at [phone] or [phone] Dispo: The patient can follow up with [facility] or [facility] for outpatient psy services. Staffed with Dr Yasemin Osullivan.
[2019-01-30 19:46] VITALS: BP 151/62
[2019-01-30] MEDS ORDERED: ARICEPT PO SCH (22:00)
== END 2019-01-30 20:46 | disposition home or self-care (01) ==
LOC: EEVIPCON 01:31 → ED 01:31
DX: F05 Delirium due to known physiological condition (principal); I10 Essential (primary) hypertension; M19.90 Unspecified osteoarthritis, unspecified site; F17.200 Nicotine dependence, unspecified, uncomplicated; Z79.899 Other long term (current) drug therapy
CPT/HCPCS: 36415; 80048; 80307; 81001; 85025; 99284; G0480; 80320